=== PATIENT | male | born 1955 | race African-American/Black ===

== ENCOUNTER 2018-02-10 10:27 | Emergency (ER) | payer MEDICARE, MEDICAID ==
[~2018-02-10] VITALS: Ht 165.1 cm; Wt 76.0 kg
[~2018-02-10 10:27] MED LIST: ACET-2178 PO; ALBU90AE IH; AMLO10TA80 PO; ASPI-1158 PO; ATOR80TA PO; AZIT250T12 PO; BACL-141 PO; BENZ100C86 PO; CALC667C PO; CHOL500010 PO; CLON0.1T14; CLON0.2T PO; CYCL5TAB PO; D-ME473S8 PO; DOCU-150 PO; ENAL10TA PO; FERR-63 PO; FOLI0.8T23 PO; FURO80TA87; GABA-531 PO; GABA800T; HYDR-4134 PO; IBUP-2029 PO; INSULIN; LORA10TA7 PO; LTMX5 LEFTEYE; METO10TA94; NAPR375T5 MT; PRED10DR LEFTEYE; TERA2CAP16; TOBR5DRO2 LEFTEYE; [UNRECOGNIZED DRUG - CODE] PO
[2018-02-10] MEDS ORDERED: IPRATROPIUM BROMIDE (0.02%) 0.5MG/2.5ML NEB HHN STA (10:53)
[2018-02-10] MEDS ORDERED: ALBUTEROL (0.083%) 2.5MG/3ML NEB HHN STA (10:53)
[2018-02-10 13:12] LABS: CHLORIDE 97 mEq/L (98-107)
[2018-02-10 13:19] LABS: BASOPHILS % 0.3 % (0.0-2.0); HEMATOCRIT. 32.3 % (42.0-52.0); HEMOGLOBIN. 10.6 g/dL (14.0-18.0); LYMPHOCYTES % 11.4 % (20.0-50.0); MEAN CORPUSCULAR VOLUME 91.5 fL (80.0-94.0); MEAN PLATELET VOLUME 9.8 fl (7.4-10.4); MONOCYTES % 7.6 % (2.0-8.0); NEUTROPHILS % 76.7 % (40.0-76.0); PLATELET 190 x1000/uL (130-400); RED BLOOD CELL COUNT 3.53 mill/uL (4.7-6.1); RED CELL DISTRIBUTION WIDTH 17.1 % (11.6-14.6)
[2018-02-10 14:24] VITALS: BP 136/65
== END 2018-02-10 16:44 | disposition home or self-care (01) ==
LOC: ER 16:18
DX: B34.9 Viral infection, unspecified (principal); J18.9 Pneumonia, unspecified organism; I12.0 Hypertensive chronic kidney disease with stage 5 chronic kidney disease or end stage renal disease; E11.22 Type 2 diabetes mellitus with diabetic chronic kidney disease; N18.6 End stage renal disease; Z99.2 Dependence on renal dialysis
CPT/HCPCS: 36415; 71045; 87804; 93005; 94640; 99285; J7611

== ENCOUNTER 2018-11-19 09:10 | Emergency (ER) | payer MEDICARE, MEDICAID ==
[~2018-11-19] VITALS: Ht 167.6 cm; Wt 77.0 kg
[2018-11-19 10:04] VITALS: BP 147/80
== END 2018-11-19 10:05 | disposition home or self-care (01) ==
LOC: ER 09:10
DX: K04.7 Periapical abscess without sinus (principal); E11.9 Type 2 diabetes mellitus without complications
CPT/HCPCS: 82962; 99283

== ENCOUNTER 2019-10-11 13:13 | Emergency (ER) | payer MEDICARE, MEDICAID ==
[~2019-10-11] VITALS: Ht 177.8 cm; Wt 81.8 kg
[~2019-10-11 13:13] MED LIST changes: -ACET-2178 PO; +METO10TA16; -METO10TA94; +TOPUD PO
[2019-10-11 13:16] VITALS: BP 131/68
== END 2019-10-11 16:23 | disposition left against medical advice (07) ==
LOC: ER 13:13
DX: R06.03 Acute respiratory distress (principal)
CPT/HCPCS: 93005; 99283

== ENCOUNTER 2021-02-02 12:45 | Inpatient (IN) | payer MEDICARE, MEDICAID ==
[~2021-02-02] VITALS: Ht 167.6 cm; Wt 77.6 kg
[~2021-02-02 12:45] MED LIST changes: -ASPI-1158 PO; +ASPI-1406 PO; -ENAL10TA PO; +ENAL10TA19 PO; -GABA-531 PO; +GABA-532 PO
[2021-02-02 14:59] LABS: EOSINOPHILS % 4.9 % (0.0-5.0); HEMATOCRIT. 38.2 % (42.0-52.0); LYMPHOCYTES % 19.4 % (20.0-50.0); MEAN CORPUSCULAR HEMOGLOBIN 28.5 pg (28.0-32.0); MEAN CORPUSCULAR VOLUME 90.8 fL (80.0-94.0); MEAN PLATELET VOLUME 9.2 fl (7.4-10.4); MONOCYTES % 6.6 % (2.0-8.0); NEUTROPHILS % 68.1 % (40.0-76.0); PLATELET 173 x1000/uL (130-400); RED BLOOD CELL COUNT 4.21 mill/uL (4.7-6.1); RED CELL DISTRIBUTION WIDTH 17.3 % (11.6-14.6)
[2021-02-02 15:07] LABS: CHLORIDE 100 mEq/L (98-107)
[2021-02-02] MEDS ORDERED: PIPERACILLIN/TAZOBACTAM 3.375GM/50ML PREMIX IV ONE (16:45)
[2021-02-02] MEDS ORDERED: PIPERACILLIN/TAZ 3.375G PREMIX 50 ML IV NR (18:00)
[2021-02-02] MEDS ORDERED: DEXTROSE 50% WATER 50ML SYRINGE IV PRN (18:45)
[2021-02-02] MEDS ORDERED: ACETAMINOPHEN 325MG TABLET PO PRN (18:45)
[2021-02-02] MEDS ORDERED: ONDANSETRON HCL 4MG/2ML INJ IV PRN (18:45)
[2021-02-02] MEDS ORDERED: VANCOMYCIN 1 G PREMIX 200 ML IV SCH ×2 (18:45→20:00)
[2021-02-02] MEDS ORDERED: DIPHENHYDRAMINE 50MG/ML VIAL IV PRN (18:45)
[2021-02-02] MEDS ORDERED: GUAIFENESIN 200MG/10ML SUGAR FREE UDC PO PRN (18:45)
[2021-02-02] MEDS ORDERED: CLONIDINE 0.1MG TABLET PO PRN (18:45)
[2021-02-02] MEDS ORDERED: IPRATROPIUM/ALBUTEROL 0.5-3(2.5)MG/3ML NEB HHN PRN (18:45)
[2021-02-02] MEDS: INSULIN LISPRO 100 UNITS/ML SUBCUT SCH (21:38)
[2021-02-02] MEDS: BLOOD SUGAR DIAGNOSTIC STRIP TEST SCH (21:39)
[2021-02-02] MEDS: SODIUM CHLORIDE 0.9% INJ 3ML FLUSH IVF SCH (22:05)
[2021-02-03] MEDS: SODIUM CHLORIDE 0.9% INJ 3ML FLUSH IVF SCH ×3 (06:02→22:00)
[2021-02-03] MEDS: BLOOD SUGAR DIAGNOSTIC STRIP TEST SCH ×4 (06:34→21:00)
[2021-02-03] MEDS: INSULIN LISPRO 100 UNITS/ML SUBCUT SCH ×5 (06:35→21:00)
[2021-02-03] MEDS ORDERED: PIPERACILLIN/TAZOBACTAM 3.375 G in DEXTROSE 5% WATER 50 ML IV SCH (09:00)
[2021-02-03] MEDS: AMLODIPINE 10MG TABLET PO SCH (10:30)
[2021-02-03] MEDS ORDERED: *PATIENT'S OWN MEDICATION STORAGE XX SCH (11:30)
[2021-02-03 12:00] VITALS: BP 116/62
[2021-02-03] MEDS ORDERED: TOBRAMYCIN/DEXAMETH 0.1/0.3% OPHTH SUSP 2.5ML LEFTEYE SCH (13:00)
[2021-02-03] MEDS ORDERED: PREDNISOLONE ACETATE 1% OPHTH DROPS 5ML LEFTEYE SCH (13:00)
[2021-02-03 13:18] LABS: HEPATITIS B SURFACE ANTIGEN NEGATIVE
[2021-02-03] MEDS: GABAPENTIN 300MG CAPSULE PO SCH ×2 (14:56→18:37)
[2021-02-03] MEDS: CALCIUM ACETATE 667MG CAPSULE PO SCH ×2 (14:58→18:37)
[2021-02-03] MEDS: HYDRALAZINE HCL 50MG TABLET PO SCH ×2 (14:58→18:38)
[2021-02-03] MEDS: FOLIC ACID/VITAMIN B COMP W-C TABLET PO SCH (14:59)
[2021-02-03] MEDS: BACLOFEN 10MG TABLET PO SCH (15:07)
[2021-02-03 16:00] VITALS: BP 116/62
[2021-02-03] MEDS: PIPERACILLIN/TAZOBACTAM 3.375 G in DEXTROSE 5% WATER 50 ML IV SCH ×2 (18:36→21:00)
[2021-02-03] MEDS: CLONIDINE 0.2MG TABLET PO SCH (18:38)
[2021-02-03 20:00] VITALS: BP 109/61
[2021-02-03 20:25] VITALS: BP 114/47
[2021-02-04] VITALS: BP 105/60
[2021-02-04 04:00] VITALS: BP 95/52
[2021-02-04] MEDS: SODIUM CHLORIDE 0.9% INJ 3ML FLUSH IVF SCH ×3 (06:44→22:09)
[2021-02-04] MEDS: BLOOD SUGAR DIAGNOSTIC STRIP TEST SCH ×4 (06:44→22:32)
[2021-02-04] MEDS: INSULIN LISPRO 100 UNITS/ML SUBCUT SCH ×4 (07:50→22:39)
[2021-02-04 08:00] VITALS: BP 135/49
[2021-02-04] MEDS: GABAPENTIN 300MG CAPSULE PO SCH ×3 (09:00→17:00)
[2021-02-04] MEDS: CALCIUM ACETATE 667MG CAPSULE PO SCH ×3 (09:00→17:50)
[2021-02-04] MEDS: AMLODIPINE 10MG TABLET PO SCH (09:00)
[2021-02-04] MEDS: FOLIC ACID/VITAMIN B COMP W-C TABLET PO SCH (09:00)
[2021-02-04] MEDS: HYDRALAZINE HCL 50MG TABLET PO SCH ×3 (09:01→17:00)
[2021-02-04] MEDS: BACLOFEN 10MG TABLET PO SCH (09:01)
[2021-02-04] MEDS: CLONIDINE 0.2MG TABLET PO SCH ×2 (09:01→17:00)
[2021-02-04] MEDS: LORATADINE 10MG TABLET PO SCH (09:01)
[2021-02-04] MEDS: PIPERACILLIN/TAZOBACTAM 3.375 G in DEXTROSE 5% WATER 50 ML IV SCH ×2 (09:02→22:09)
[2021-02-04 12:00] VITALS: BP 110/49
[2021-02-04] MEDS ORDERED: IOHEXOL-350 100 ML BOTTLE ONE (12:06)
[2021-02-04] MEDS ORDERED: VANCOMYCIN 750 MG PREMIX 150 ML IV SCH (13:00)
[2021-02-04 16:19] VITALS: BP 96/43
[2021-02-04 20:00] VITALS: BP 119/59
[2021-02-05] VITALS: BP 120/75
[2021-02-05 04:00] VITALS: BP 109/51
[2021-02-05] MEDS: SODIUM CHLORIDE 0.9% INJ 3ML FLUSH IVF SCH ×3 (06:37→21:57)
[2021-02-05] MEDS: BLOOD SUGAR DIAGNOSTIC STRIP TEST SCH ×4 (07:20→22:35)
[2021-02-05] MEDS: INSULIN LISPRO 100 UNITS/ML SUBCUT SCH ×4 (07:45→22:35)
[2021-02-05 08:00] VITALS: BP 109/57
[2021-02-05] MEDS: AMLODIPINE 10MG TABLET PO SCH (09:00)
[2021-02-05] MEDS: CLONIDINE 0.2MG TABLET PO SCH ×2 (09:00→16:42)
[2021-02-05] MEDS: HYDRALAZINE HCL 50MG TABLET PO SCH ×3 (09:00→16:42)
[2021-02-05] MEDS: FOLIC ACID/VITAMIN B COMP W-C TABLET PO SCH (09:42)
[2021-02-05] MEDS: CALCIUM ACETATE 667MG CAPSULE PO SCH ×3 (09:42→17:50)
[2021-02-05] MEDS: GABAPENTIN 300MG CAPSULE PO SCH ×3 (09:42→16:42)
[2021-02-05] MEDS: PIPERACILLIN/TAZOBACTAM 3.375 G in DEXTROSE 5% WATER 50 ML IV SCH ×2 (09:43→21:11)
[2021-02-05] MEDS: LORATADINE 10MG TABLET PO SCH (09:43)
[2021-02-05] MEDS: BACLOFEN 10MG TABLET PO SCH (09:43)
[2021-02-05 12:00] VITALS: BP 149/62
[2021-02-05] MEDS ORDERED: MIDAZOLAM HCL 2 MG/2 ML VIAL ONE (12:03)
[2021-02-05] MEDS ORDERED: FENTANYL CITRATE/PF 50MCG/ML 2ML VIAL ONE (12:03)
[2021-02-05] MEDS ORDERED: MIDAZOLAM HCL 5 MG/5 ML VIAL ONE (12:04)
[2021-02-05] MEDS ORDERED: FENTANYL CITRATE/PF 50MCG/ML 5ML VIAL ONE (12:04)
[2021-02-05] MEDS ORDERED: LIDOCAINE HCL 1% 30ML VIAL (10MG/ML) ONE (12:05)
[2021-02-05] MEDS ORDERED: IODIXANOL 320MG/ML 100 ML BOTTLE IV ONE (12:05)
[2021-02-05] MEDS ORDERED: IOHEXOL-300 100 ML BOTTLE ONE (12:05)
[2021-02-05] MEDS ORDERED: HEPARIN 1000 UNITS/ML 10ML ONE (12:24)
[2021-02-05 16:00] VITALS: BP 131/72
[2021-02-05 19:54] LABS: BASOPHILS % 0.8 % (0.0-2.0); EOSINOPHILS % 3.2 % (0.0-5.0); HEMATOCRIT. 42.2 % (42.0-52.0); HEMOGLOBIN. 13.7 g/dL (14.0-18.0); LYMPHOCYTES % 23.8 % (20.0-50.0); MEAN CORPUSCULAR HEMOGLOBIN 28.6 pg (28.0-32.0); MEAN CORPUSCULAR VOLUME 88.3 fL (80.0-94.0); MEAN PLATELET VOLUME 9.2 fl (7.4-10.4); MONOCYTES % 4.2 % (2.0-8.0); PLATELET 218 x1000/uL (130-400); RED BLOOD CELL COUNT 4.77 mill/uL (4.7-6.1); RED CELL DISTRIBUTION WIDTH 16.6 % (11.6-14.6)
[2021-02-05 20:00] VITALS: BP 146/75
[2021-02-06] VITALS: BP 108/39
[2021-02-06 04:00] VITALS: BP 117/47
[2021-02-06] MEDS: SODIUM CHLORIDE 0.9% INJ 3ML FLUSH IVF SCH ×3 (07:01→21:15)
[2021-02-06] MEDS: BLOOD SUGAR DIAGNOSTIC STRIP TEST SCH ×4 (07:05→20:58)
[2021-02-06 07:21] LABS: BASOPHILS % 0.5 % (0.0-2.0); EOSINOPHILS % 0.4 % (0.0-5.0); LYMPHOCYTES % 15.9 % (20.0-50.0); MEAN CORPUSCULAR HEMOGLOBIN 28.7 pg (28.0-32.0); MEAN CORPUSCULAR VOLUME 90.1 fL (80.0-94.0); MEAN PLATELET VOLUME 9.3 fl (7.4-10.4); MONOCYTES % 12.6 % (2.0-8.0); NEUTROPHILS % 70.6 % (40.0-76.0); PLATELET 202 x1000/uL (130-400); RED BLOOD CELL COUNT 4.88 mill/uL (4.7-6.1); RED CELL DISTRIBUTION WIDTH 17.1 % (11.6-14.6)
[2021-02-06] MEDS: CALCIUM ACETATE 667MG CAPSULE PO SCH ×3 (07:50→17:40)
[2021-02-06] MEDS: INSULIN LISPRO 100 UNITS/ML SUBCUT SCH ×4 (07:50→20:58)
[2021-02-06] MEDS: HYDRALAZINE HCL 50MG TABLET PO SCH ×3 (08:13→16:44)
[2021-02-06 08:14] VITALS: BP 93/52
[2021-02-06] MEDS: AMLODIPINE 10MG TABLET PO SCH (08:14)
[2021-02-06] MEDS: CLONIDINE 0.2MG TABLET PO SCH ×2 (08:14→16:44)
[2021-02-06] MEDS: GABAPENTIN 300MG CAPSULE PO SCH ×3 (09:00→16:45)
[2021-02-06] MEDS: BACLOFEN 10MG TABLET PO SCH (09:00)
[2021-02-06] MEDS: FOLIC ACID/VITAMIN B COMP W-C TABLET PO SCH (09:00)
[2021-02-06] MEDS: LORATADINE 10MG TABLET PO SCH (09:00)
[2021-02-06] MEDS: PIPERACILLIN/TAZOBACTAM 3.375 G in DEXTROSE 5% WATER 50 ML IV SCH ×2 (09:00→22:11)
[2021-02-06 12:00] VITALS: BP 100/52
[2021-02-06 16:00] VITALS: BP 131/72
[2021-02-06 20:00] VITALS: BP 127/67
[2021-02-06] MEDS ORDERED: VANCOMYCIN 500 MG PREMIX 100 ML IV NR (21:00)
[2021-02-07] VITALS: BP 100/57
[2021-02-07 04:30] VITALS: BP 111/60
[2021-02-07] MEDS: BLOOD SUGAR DIAGNOSTIC STRIP TEST SCH ×4 (06:17→21:00)
[2021-02-07] MEDS: SODIUM CHLORIDE 0.9% INJ 3ML FLUSH IVF SCH ×3 (06:17→22:04)
[2021-02-07 06:47] LABS: BASOPHILS % 0.2 % (0.0-2.0); EOSINOPHILS % 0.1 % (0.0-5.0); HEMATOCRIT. 41.9 % (42.0-52.0); HEMOGLOBIN. 13.4 g/dL (14.0-18.0); LYMPHOCYTES % 9.9 % (20.0-50.0); MEAN CORPUSCULAR HEMOGLOBIN 28.7 pg (28.0-32.0); MEAN CORPUSCULAR VOLUME 89.8 fL (80.0-94.0); MEAN PLATELET VOLUME 9.4 fl (7.4-10.4); MONOCYTES % 9.2 % (2.0-8.0); NEUTROPHILS % 80.6 % (40.0-76.0); PLATELET 222 x1000/uL (130-400); RED BLOOD CELL COUNT 4.66 mill/uL (4.7-6.1); RED CELL DISTRIBUTION WIDTH 17.2 % (11.6-14.6)
[2021-02-07] MEDS ORDERED: SODIUM POLYSTYRENE SULFONATE 15 G/60 ML BOT PO SCH (07:00)
[2021-02-07] MEDS: CALCIUM ACETATE 667MG CAPSULE PO SCH ×3 (07:50→17:50)
[2021-02-07] MEDS: INSULIN LISPRO 100 UNITS/ML SUBCUT SCH ×4 (07:50→21:00)
[2021-02-07 08:00] VITALS: BP 120/70
[2021-02-07] MEDS: GABAPENTIN 300MG CAPSULE PO SCH ×3 (09:00→17:00)
[2021-02-07] MEDS: CLONIDINE 0.2MG TABLET PO SCH ×2 (09:00→17:00)
[2021-02-07] MEDS: FOLIC ACID/VITAMIN B COMP W-C TABLET PO SCH (09:00)
[2021-02-07] MEDS: HYDRALAZINE HCL 50MG TABLET PO SCH ×3 (09:00→17:00)
[2021-02-07] MEDS: BACLOFEN 10MG TABLET PO SCH (09:00)
[2021-02-07] MEDS: LORATADINE 10MG TABLET PO SCH (09:00)
[2021-02-07] MEDS: AMLODIPINE 10MG TABLET PO SCH (09:00)
[2021-02-07 12:00] VITALS: BP 125/71
[2021-02-07] MEDS: PIPERACILLIN/TAZOBACTAM 3.375 G in DEXTROSE 5% WATER 50 ML IV SCH ×2 (15:51→22:04)
[2021-02-07 16:00] VITALS: BP 116/60
[2021-02-08] VITALS: BP 124/75
[2021-02-08 04:00] VITALS: BP 135/73
[2021-02-08] MEDS: BLOOD SUGAR DIAGNOSTIC STRIP TEST SCH ×4 (06:46→21:00)
[2021-02-08] MEDS: SODIUM CHLORIDE 0.9% INJ 3ML FLUSH IVF SCH ×3 (06:47→22:02)
[2021-02-08] MEDS: INSULIN LISPRO 100 UNITS/ML SUBCUT SCH ×4 (07:29→21:00)
[2021-02-08] MEDS: PIPERACILLIN/TAZOBACTAM 3.375 G in DEXTROSE 5% WATER 50 ML IV SCH ×2 (08:24→21:59)
[2021-02-08 08:30] VITALS: BP 168/92
[2021-02-08] MEDS: CALCIUM ACETATE 667MG CAPSULE PO SCH ×3 (10:41→17:37)
[2021-02-08] MEDS: BACLOFEN 10MG TABLET PO SCH (10:41)
[2021-02-08] MEDS: FOLIC ACID/VITAMIN B COMP W-C TABLET PO SCH (10:41)
[2021-02-08] MEDS: HYDRALAZINE HCL 50MG TABLET PO SCH ×3 (10:41→17:37)
[2021-02-08] MEDS: GABAPENTIN 300MG CAPSULE PO SCH ×3 (10:41→17:37)
[2021-02-08] MEDS: LORATADINE 10MG TABLET PO SCH (10:42)
[2021-02-08] MEDS: AMLODIPINE 10MG TABLET PO SCH (10:42)
[2021-02-08] MEDS: CLONIDINE 0.2MG TABLET PO SCH ×2 (10:44→17:37)
[2021-02-08 12:30] VITALS: BP 112/68
[2021-02-08 16:00] VITALS: BP 148/63
[2021-02-08 20:00] VITALS: BP 117/64
[2021-02-09] VITALS: BP 110/62
[2021-02-09 04:00] VITALS: BP 98/63
[2021-02-09] MEDS: BLOOD SUGAR DIAGNOSTIC STRIP TEST SCH ×4 (07:20→21:15)
[2021-02-09] MEDS: INSULIN LISPRO 100 UNITS/ML SUBCUT SCH ×5 (07:50→21:41)
[2021-02-09 08:00] VITALS: BP 103/59
[2021-02-09] MEDS: AMLODIPINE 10MG TABLET PO SCH (09:00)
[2021-02-09] MEDS: CLONIDINE 0.2MG TABLET PO SCH ×2 (09:00→17:00)
[2021-02-09] MEDS: HYDRALAZINE HCL 50MG TABLET PO SCH ×3 (09:00→17:00)
[2021-02-09] MEDS: BACLOFEN 10MG TABLET PO SCH (09:00)
[2021-02-09] MEDS: LORATADINE 10MG TABLET PO SCH (09:32)
[2021-02-09] MEDS: GABAPENTIN 300MG CAPSULE PO SCH ×3 (09:33→17:00)
[2021-02-09] MEDS: CALCIUM ACETATE 667MG CAPSULE PO SCH ×3 (09:33→17:16)
[2021-02-09] MEDS: FOLIC ACID/VITAMIN B COMP W-C TABLET PO SCH (09:33)
[2021-02-09] MEDS: PIPERACILLIN/TAZOBACTAM 3.375 G in DEXTROSE 5% WATER 50 ML IV SCH ×2 (09:34→21:15)
[2021-02-09 12:00] VITALS: BP 130/71
[2021-02-09 16:00] VITALS: BP 125/76
[2021-02-09] MEDS: SODIUM CHLORIDE 0.9% INJ 3ML FLUSH IVF SCH ×2 (17:14→21:15)
[2021-02-09] MEDS ORDERED: VANCOMYCIN 500 MG PREMIX 100 ML IV NR (18:00)
[2021-02-09 20:00] VITALS: BP 116/62
[2021-02-10] VITALS: BP 122/65
[2021-02-10 04:00] VITALS: BP 138/66
[2021-02-10] MEDS: SODIUM CHLORIDE 0.9% INJ 3ML FLUSH IVF SCH ×3 (06:04→21:03)
[2021-02-10] MEDS: BLOOD SUGAR DIAGNOSTIC STRIP TEST SCH ×4 (06:05→20:59)
[2021-02-10 07:26] LABS: BASOPHILS % 0.5 % (0.0-2.0); EOSINOPHILS % 5.4 % (0.0-5.0); HEMATOCRIT. 40.9 % (42.0-52.0); HEMOGLOBIN. 13.1 g/dL (14.0-18.0); LYMPHOCYTES % 15.7 % (20.0-50.0); MEAN CORPUSCULAR HEMOGLOBIN 29.2 pg (28.0-32.0); MEAN CORPUSCULAR VOLUME 90.9 fL (80.0-94.0); MEAN PLATELET VOLUME 9.3 fl (7.4-10.4); MONOCYTES % 9.5 % (2.0-8.0); NEUTROPHILS % 68.9 % (40.0-76.0); PLATELET 181 x1000/uL (130-400)
[2021-02-10 08:00] VITALS: BP 131/59
[2021-02-10] MEDS: PIPERACILLIN/TAZOBACTAM 3.375 G in DEXTROSE 5% WATER 50 ML IV SCH ×2 (09:16→21:03)
[2021-02-10] MEDS: INSULIN LISPRO 100 UNITS/ML SUBCUT SCH ×5 (09:16→21:04)
[2021-02-10] MEDS: CALCIUM ACETATE 667MG CAPSULE PO SCH ×3 (09:17→17:44)
[2021-02-10] MEDS: BACLOFEN 10MG TABLET PO SCH (09:17)
[2021-02-10] MEDS: CLONIDINE 0.2MG TABLET PO SCH ×2 (09:18→17:44)
[2021-02-10] MEDS: HYDRALAZINE HCL 50MG TABLET PO SCH ×3 (09:19→17:44)
[2021-02-10] MEDS: FOLIC ACID/VITAMIN B COMP W-C TABLET PO SCH (09:19)
[2021-02-10] MEDS: AMLODIPINE 10MG TABLET PO SCH (09:19)
[2021-02-10] MEDS: LORATADINE 10MG TABLET PO SCH (09:19)
[2021-02-10] MEDS: GABAPENTIN 300MG CAPSULE PO SCH ×3 (09:19→17:44)
[2021-02-10 12:09] VITALS: BP 91/47
[2021-02-10 16:00] VITALS: BP 105/54
[2021-02-10 20:00] VITALS: BP 98/51
[2021-02-11] VITALS: BP 91/32
[2021-02-11 04:00] VITALS: BP 92/40
[2021-02-11] MEDS: BLOOD SUGAR DIAGNOSTIC STRIP TEST SCH ×4 (06:38→20:49)
[2021-02-11] MEDS: SODIUM CHLORIDE 0.9% INJ 3ML FLUSH IVF SCH ×3 (06:41→21:03)
[2021-02-11 07:15] LABS: BASOPHILS % 0.6 % (0.0-2.0); EOSINOPHILS % 5.5 % (0.0-5.0); HEMATOCRIT. 35.7 % (42.0-52.0); HEMOGLOBIN. 11.6 g/dL (14.0-18.0); LYMPHOCYTES % 24.2 % (20.0-50.0); MEAN CORPUSCULAR HEMOGLOBIN 29.3 pg (28.0-32.0); MEAN CORPUSCULAR VOLUME 90.4 fL (80.0-94.0); MEAN PLATELET VOLUME 9.4 fl (7.4-10.4); MONOCYTES % 8.1 % (2.0-8.0); NEUTROPHILS % 61.6 % (40.0-76.0); PLATELET 159 x1000/uL (130-400); RED BLOOD CELL COUNT 3.95 mill/uL (4.7-6.1); RED CELL DISTRIBUTION WIDTH 16.7 % (11.6-14.6)
[2021-02-11 08:30] VITALS: BP 115/58
[2021-02-11] MEDS: FOLIC ACID/VITAMIN B COMP W-C TABLET PO SCH (08:56)
[2021-02-11] MEDS: GABAPENTIN 300MG CAPSULE PO SCH ×3 (08:56→17:19)
[2021-02-11] MEDS: CALCIUM ACETATE 667MG CAPSULE PO SCH ×3 (08:56→17:19)
[2021-02-11] MEDS: PIPERACILLIN/TAZOBACTAM 3.375 G in DEXTROSE 5% WATER 50 ML IV SCH ×2 (08:56→20:49)
[2021-02-11] MEDS: BACLOFEN 10MG TABLET PO SCH (08:56)
[2021-02-11] MEDS: CLONIDINE 0.2MG TABLET PO SCH ×2 (09:00→17:00)
[2021-02-11] MEDS: AMLODIPINE 10MG TABLET PO SCH (09:00)
[2021-02-11] MEDS: LORATADINE 10MG TABLET PO SCH (09:00)
[2021-02-11] MEDS: INSULIN LISPRO 100 UNITS/ML SUBCUT SCH ×4 (09:00→20:57)
[2021-02-11] MEDS: HYDRALAZINE HCL 50MG TABLET PO SCH ×3 (09:00→17:00)
[2021-02-11 12:30] VITALS: BP 106/51
[2021-02-11 15:59] VITALS: BP 98/48
[2021-02-11 20:00] VITALS: BP 128/64
[2021-02-12] VITALS (7 sets, daily range): BP systolic 99–157; BP diastolic 50–68
[2021-02-12] MEDS: SODIUM CHLORIDE 0.9% INJ 3ML FLUSH IVF SCH ×3 (05:36→21:07)
[2021-02-12] MEDS ORDERED: VANCOMYCIN 500 MG PREMIX 100 ML IV SCH (06:00)
[2021-02-12] MEDS: BLOOD SUGAR DIAGNOSTIC STRIP TEST SCH ×4 (06:21→21:06)
[2021-02-12] MEDS ORDERED: LIDOCAINE HCL 1% 20ML VIAL (Pyxis) INJ ONE (07:40)
[2021-02-12] MEDS ORDERED: BUPIVACAINE HCL/PF 0.5% (5MG/ML) 10ML ONE (07:40)
[2021-02-12] MEDS ORDERED: POLYMYXIN B SULFATE 500000 UNITS/VIAL ONE (07:41)
[2021-02-12] MEDS ORDERED: VANCOMYCIN HCL 1 GM/VIAL ONE (07:41)
[2021-02-12] MEDS: INSULIN LISPRO 100 UNITS/ML SUBCUT SCH ×4 (07:50→21:00)
[2021-02-12] MEDS: LORATADINE 10MG TABLET PO SCH (08:56)
[2021-02-12] MEDS: PIPERACILLIN/TAZOBACTAM 3.375 G in DEXTROSE 5% WATER 50 ML IV SCH ×2 (08:56→21:06)
[2021-02-12] MEDS: FOLIC ACID/VITAMIN B COMP W-C TABLET PO SCH (08:56)
[2021-02-12] MEDS: BACLOFEN 10MG TABLET PO SCH (08:57)
[2021-02-12] MEDS: CALCIUM ACETATE 667MG CAPSULE PO SCH ×3 (08:57→16:41)
[2021-02-12] MEDS: AMLODIPINE 10MG TABLET PO SCH (08:57)
[2021-02-12] MEDS: HYDRALAZINE HCL 50MG TABLET PO SCH ×3 (08:57→16:41)
[2021-02-12] MEDS: GABAPENTIN 300MG CAPSULE PO SCH ×3 (08:57→16:41)
[2021-02-12] MEDS: CLONIDINE 0.2MG TABLET PO SCH ×2 (09:00→16:41)
[2021-02-12] MEDS ORDERED: ACETAMINOPHEN 500MG TABLET ONE (10:21)
[2021-02-12] MEDS ORDERED: PROPOFOL 10MG/ML 100ML 100 ML IV ONE ×2 (10:29→11:18)
[2021-02-12] MEDS ORDERED: LIDOCAINE HCL 1% 10 MG/ML 10ML VIAL ONE (10:46)
[2021-02-12] MEDS ORDERED: ONDANSETRON HCL 4MG/2ML INJ IV PRN (11:15)
[2021-02-12] MEDS ORDERED: FENTANYL CITRATE/PF 50MCG/ML 2ML VIAL IV PRN (11:15)
[2021-02-12] MEDS ORDERED: BACITRACIN 15GM TUBE TOP ONE (11:18)
[2021-02-12] MEDS: ACETAMINOPHEN 325MG TABLET PO PRN (21:55)
[2021-02-13 04:00] VITALS: BP 110/59
[2021-02-13] MEDS: SODIUM CHLORIDE 0.9% INJ 3ML FLUSH IVF SCH ×3 (06:00→20:56)
[2021-02-13] MEDS: BLOOD SUGAR DIAGNOSTIC STRIP TEST SCH ×4 (06:23→20:55)
[2021-02-13] MEDS: CALCIUM ACETATE 667MG CAPSULE PO SCH ×3 (07:50→17:21)
[2021-02-13] MEDS: INSULIN LISPRO 100 UNITS/ML SUBCUT SCH ×4 (07:50→20:56)
[2021-02-13 08:00] VITALS: BP 114/57
[2021-02-13] MEDS: PIPERACILLIN/TAZOBACTAM 3.375 G in DEXTROSE 5% WATER 50 ML IV SCH ×3 (08:46→20:55)
[2021-02-13] MEDS: GABAPENTIN 300MG CAPSULE PO SCH ×3 (08:47→17:21)
[2021-02-13] MEDS: BACLOFEN 10MG TABLET PO SCH (08:47)
[2021-02-13] MEDS: LORATADINE 10MG TABLET PO SCH (08:48)
[2021-02-13] MEDS: CLONIDINE 0.2MG TABLET PO SCH ×2 (08:57→17:00)
[2021-02-13] MEDS: HYDRALAZINE HCL 50MG TABLET PO SCH ×3 (08:57→17:00)
[2021-02-13] MEDS: AMLODIPINE 10MG TABLET PO SCH (08:58)
[2021-02-13] MEDS: FOLIC ACID/VITAMIN B COMP W-C TABLET PO SCH (08:58)
[2021-02-13 12:00] VITALS: BP 128/62
[2021-02-13 16:00] VITALS: BP 128/70
[2021-02-13 20:36] VITALS: BP 151/65
[2021-02-14] VITALS (7 sets, daily range): BP systolic 106–160; BP diastolic 56–79
[2021-02-14 05:48] LABS: BASOPHILS % 0.5 % (0.0-2.0); EOSINOPHILS % 5.6 % (0.0-5.0); HEMATOCRIT. 37.7 % (42.0-52.0); HEMOGLOBIN. 12.1 g/dL (14.0-18.0); LYMPHOCYTES % 18.8 % (20.0-50.0); MEAN CORPUSCULAR HEMOGLOBIN 28.9 pg (28.0-32.0); MEAN CORPUSCULAR VOLUME 89.9 fL (80.0-94.0); MONOCYTES % 7.7 % (2.0-8.0); NEUTROPHILS % 67.4 % (40.0-76.0); PLATELET 160 x1000/uL (130-400); RED CELL DISTRIBUTION WIDTH 16.7 % (11.6-14.6)
[2021-02-14] MEDS: SODIUM CHLORIDE 0.9% INJ 3ML FLUSH IVF SCH ×3 (05:57→21:31)
[2021-02-14] MEDS: BLOOD SUGAR DIAGNOSTIC STRIP TEST SCH ×4 (06:27→21:30)
[2021-02-14] MEDS: INSULIN LISPRO 100 UNITS/ML SUBCUT SCH ×4 (06:27→21:00)
[2021-02-14] MEDS ORDERED: LIDOCAINE HCL 1% 10 MG/ML 10ML VIAL ONE (08:36)
[2021-02-14] MEDS: CALCIUM ACETATE 667MG CAPSULE PO SCH ×3 (08:40→17:46)
[2021-02-14] MEDS: GABAPENTIN 300MG CAPSULE PO SCH ×3 (08:40→17:46)
[2021-02-14] MEDS: FOLIC ACID/VITAMIN B COMP W-C TABLET PO SCH (08:40)
[2021-02-14] MEDS: LORATADINE 10MG TABLET PO SCH (08:40)
[2021-02-14] MEDS: CLONIDINE 0.2MG TABLET PO SCH ×2 (08:40→17:00)
[2021-02-14] MEDS: BACLOFEN 10MG TABLET PO SCH (08:40)
[2021-02-14] MEDS: HYDRALAZINE HCL 50MG TABLET PO SCH ×3 (08:40→17:00)
[2021-02-14] MEDS: AMLODIPINE 10MG TABLET PO SCH (08:41)
[2021-02-14] MEDS: PIPERACILLIN/TAZOBACTAM 3.375 G in DEXTROSE 5% WATER 50 ML IV SCH ×2 (09:13→21:31)
[2021-02-14] MEDS: ACETAMINOPHEN 325MG TABLET PO PRN (11:45)
[2021-02-15 04:00] VITALS: BP 111/52
[2021-02-15] MEDS: SODIUM CHLORIDE 0.9% INJ 3ML FLUSH IVF SCH ×3 (06:00→22:17)
[2021-02-15] MEDS: INSULIN LISPRO 100 UNITS/ML SUBCUT SCH ×4 (06:21→22:16)
[2021-02-15] MEDS: BLOOD SUGAR DIAGNOSTIC STRIP TEST SCH ×4 (06:21→22:17)
[2021-02-15 08:00] VITALS: BP 107/51
[2021-02-15] MEDS: BACLOFEN 10MG TABLET PO SCH (08:08)
[2021-02-15] MEDS: CALCIUM ACETATE 667MG CAPSULE PO SCH ×3 (08:08→18:00)
[2021-02-15] MEDS: PIPERACILLIN/TAZOBACTAM 3.375 G in DEXTROSE 5% WATER 50 ML IV SCH (08:08)
[2021-02-15] MEDS: GABAPENTIN 300MG CAPSULE PO SCH ×3 (08:08→18:00)
[2021-02-15] MEDS: FOLIC ACID/VITAMIN B COMP W-C TABLET PO SCH (08:08)
[2021-02-15] MEDS: LORATADINE 10MG TABLET PO SCH (08:08)
[2021-02-15] MEDS: HYDRALAZINE HCL 50MG TABLET PO SCH ×3 (08:09→18:00)
[2021-02-15] MEDS: CLONIDINE 0.2MG TABLET PO SCH ×2 (08:09→18:00)
[2021-02-15] MEDS: AMLODIPINE 10MG TABLET PO SCH (08:10)
[2021-02-15 12:00] VITALS: BP 143/63
[2021-02-15 16:00] VITALS: BP 122/52
[2021-02-15] MEDS: CEFTRIAXONE 2 G in DEXTROSE 5% WATER 50 ML IV SCH (18:00)
[2021-02-15 20:00] VITALS: BP 98/38
[2021-02-16] VITALS (7 sets, daily range): BP systolic 105–140; BP diastolic 40–64
[2021-02-16] MEDS: SODIUM CHLORIDE 0.9% INJ 3ML FLUSH IVF SCH ×2 (06:00→14:05)
[2021-02-16] MEDS: BLOOD SUGAR DIAGNOSTIC STRIP TEST SCH ×3 (06:39→17:59)
[2021-02-16 07:25] LABS: BASOPHILS % 0.4 % (0.0-2.0); EOSINOPHILS % 5.2 % (0.0-5.0); HEMATOCRIT. 31.9 % (42.0-52.0); HEMOGLOBIN. 10.3 g/dL (14.0-18.0); LYMPHOCYTES % 19.5 % (20.0-50.0); MEAN CORPUSCULAR HEMOGLOBIN 28.8 pg (28.0-32.0); MEAN CORPUSCULAR VOLUME 89.7 fL (80.0-94.0); MEAN PLATELET VOLUME 9.9 fl (7.4-10.4); MONOCYTES % 8.3 % (2.0-8.0); NEUTROPHILS % 66.6 % (40.0-76.0); PLATELET 146 x1000/uL (130-400); RED BLOOD CELL COUNT 3.56 mill/uL (4.7-6.1); RED CELL DISTRIBUTION WIDTH 16.6 % (11.6-14.6)
[2021-02-16] MEDS: INSULIN LISPRO 100 UNITS/ML SUBCUT SCH ×3 (07:50→17:50)
[2021-02-16] MEDS: AMLODIPINE 10MG TABLET PO SCH (09:00)
[2021-02-16] MEDS: CLONIDINE 0.2MG TABLET PO SCH ×2 (09:00→17:00)
[2021-02-16] MEDS: HYDRALAZINE HCL 50MG TABLET PO SCH ×3 (09:00→17:00)
[2021-02-16] MEDS: CALCIUM ACETATE 667MG CAPSULE PO SCH ×3 (12:50→17:50)
[2021-02-16] MEDS: GABAPENTIN 300MG CAPSULE PO SCH ×3 (13:00→17:00)
[2021-02-16] MEDS: ACETAMINOPHEN 325MG TABLET PO PRN (13:59)
[2021-02-16] MEDS: FOLIC ACID/VITAMIN B COMP W-C TABLET PO SCH (13:59)
[2021-02-16] MEDS: LORATADINE 10MG TABLET PO SCH (13:59)
[2021-02-16] MEDS: BACLOFEN 10MG TABLET PO SCH (14:00)
[2021-02-16] MEDS: CEFTRIAXONE 2 G in DEXTROSE 5% WATER 50 ML IV SCH (18:24)
== END 2021-02-16 21:45 | DRG 252 ==
LOC: ER 12:45 → EDBEDREQSVC 16:48 → EDBEDREQ 16:48 → MICUSO 18:43 → EDBEDREQ 18:46 → EDBEDREQTM 18:46 → 6WST 02-03 07:26
PROVIDERS: ADMIT Internal Medicine; ATTEND Internal Medicine
PROC: 04L Lower Arteries, Occlusion (ICD-10-PCS; principal; 2021-02-05)
PROC: 04HL33Z Insertion of Infusion Device into Left Femoral Artery, Percutaneous Approach (ICD-10-PCS; 2021-02-05)
PROC: 04HK33Z Insertion of Infusion Device into Right Femoral Artery, Percutaneous Approach (ICD-10-PCS; 2021-02-05)
PROC: 04HM33Z Insertion of Infusion Device into Right Popliteal Artery, Percutaneous Approach (ICD-10-PCS; 2021-02-05)
PROC: B41F1ZZ Fluoroscopy of Right Lower Extremity Arteries using Low Osmolar Contrast (ICD-10-PCS; 2021-02-05)
PROC: 5A1D70Z Performance of Urinary Filtration, Intermittent, Less than 6 Hours Per Day (ICD-10-PCS; 2021-02-05)
PROC: 5A1D70Z Performance of Urinary Filtration, Intermittent, Less than 6 Hours Per Day (ICD-10-PCS; 2021-02-06)
PROC: 5A1D70Z Performance of Urinary Filtration, Intermittent, Less than 6 Hours Per Day (ICD-10-PCS; 2021-02-07)
PROC: 5A1D70Z Performance of Urinary Filtration, Intermittent, Less than 6 Hours Per Day (ICD-10-PCS; 2021-02-09)
PROC: 5A1D70Z Performance of Urinary Filtration, Intermittent, Less than 6 Hours Per Day (ICD-10-PCS; 2021-02-11)
PROC: 0Q9N0ZZ Drainage of Right Metatarsal, Open Approach (ICD-10-PCS; 2021-02-12)
PROC: 0QDN0ZZ Extraction of Right Metatarsal, Open Approach (ICD-10-PCS; 2021-02-12)
PROC: 5A1D70Z Performance of Urinary Filtration, Intermittent, Less than 6 Hours Per Day (ICD-10-PCS; 2021-02-13)
PROC: 05H333Z Insertion of Infusion Device into Right Innominate Vein, Percutaneous Approach (ICD-10-PCS; 2021-02-14)
PROC: B54MZZA Ultrasonography of Right Upper Extremity Veins, Guidance (ICD-10-PCS; 2021-02-14)
PROC: 5A1D70Z Performance of Urinary Filtration, Intermittent, Less than 6 Hours Per Day (ICD-10-PCS; 2021-02-16)
DX: E11.51 Type 2 diabetes mellitus with diabetic peripheral angiopathy without gangrene (principal); N18.6 End stage renal disease; G93.41 Metabolic encephalopathy; I12.0 Hypertensive chronic kidney disease with stage 5 chronic kidney disease or end stage renal disease; M86.8X7 Other osteomyelitis, ankle and foot; E11.621 Type 2 diabetes mellitus with foot ulcer; E11.69 Type 2 diabetes mellitus with other specified complication; L97.519 Non-pressure chronic ulcer of other part of right foot with unspecified severity; E11.22 Type 2 diabetes mellitus with diabetic chronic kidney disease; E11.40 Type 2 diabetes mellitus with diabetic neuropathy, unspecified; E78.00 Pure hypercholesterolemia, unspecified; J45.909 Unspecified asthma, uncomplicated; Z20.822 Contact with and (suspected) exposure to COVID-19; E78.5 Hyperlipidemia, unspecified; L97.529 Non-pressure chronic ulcer of other part of left foot with unspecified severity; D64.9 Anemia, unspecified; M19.071 Primary osteoarthritis, right ankle and foot; Z79.1 Long term (current) use of non-steroidal anti-inflammatories (NSAID); Z79.899 Other long term (current) drug therapy; Z79.82 Long term (current) use of aspirin; Z90.49 Acquired absence of other specified parts of digestive tract; Z79.4 Long term (current) use of insulin; Z83.3 Family history of diabetes mellitus; Z99.2 Dependence on renal dialysis; I70.201 Unspecified atherosclerosis of native arteries of extremities, right leg; F29 Unspecified psychosis not due to a substance or known physiological condition
CPT/HCPCS: 36247; 36415; 71045; 73630; 73721; 74018; 75635; 75710; 76937; 80048; 80053; 80202; 82140; 82962; 83036; 83605; 84145; 84484; 85025; 85347; 85651; 86140; 86705; 86709; 86803; 87070; 87075; 87077; 87186; 87340; 87426; 88311; 92610; 93005; 93923; 93971; 97110; 97162; 97530; 99285; C1725; C1760; C1769; C1887; C1893; C1894; J0696; J1644; J1815; J2250; J2405; J2543; J2704; J3010; J3370; J3490; J7040; J7060; Q9967

== ENCOUNTER 2021-02-17 22:06 | Emergency (ER) | payer MEDICARE, MEDICAID ==
[~2021-02-17] VITALS: Ht 167.6 cm; Wt 77.0 kg
[2021-02-17] MEDS ORDERED: CEFTRIAXONE 2 GM IV ONE (23:15)
[2021-02-17] MEDS ORDERED: ONDANSETRON HCL 4MG/2ML INJ IV ONE (23:15)
[2021-02-17 23:52] LABS: BASOPHILS % 0.5 % (0.0-2.0); EOSINOPHILS % 1.7 % (0.0-5.0); HEMATOCRIT. 37.7 % (42.0-52.0); HEMOGLOBIN. 11.8 g/dL (14.0-18.0); LYMPHOCYTES % 9.6 % (20.0-50.0); MEAN CORPUSCULAR HEMOGLOBIN 28.5 pg (28.0-32.0); MEAN CORPUSCULAR VOLUME 90.8 fL (80.0-94.0); MEAN PLATELET VOLUME 9.5 fl (7.4-10.4); NEUTROPHILS % 83.2 % (40.0-76.0); PLATELET 184 x1000/uL (130-400); RED BLOOD CELL COUNT 4.15 mill/uL (4.7-6.1); RED CELL DISTRIBUTION WIDTH 16.5 % (11.6-14.6)
[2021-02-17] MEDS ORDERED: CEFTRIAXONE 2 G PREMIX 50 ML IV NR (23:56)
[2021-02-18 00:04] LABS: CHLORIDE 98 mEq/L (98-107)
[2021-02-18] MEDS ORDERED: KETOROLAC 15MG/ML VIAL IV ONE (00:45)
[2021-02-18] MEDS ORDERED: GABAPENTIN 300MG CAPSULE PO ONE (00:45)
[2021-02-18] MEDS ORDERED: CALCIUM GLUCONATE 100MG/ML 10ML VIAL IV NR (01:30)
[2021-02-18] MEDS ORDERED: SODIUM BICARBONATE 8.4% 1 MEQ/ML 50ML SYR IV NR (01:30)
[2021-02-18 02:47] VITALS: BP 106/46
== END 2021-02-18 02:49 | disposition home or self-care (01) ==
LOC: ER 22:06
DX: R11.2 Nausea with vomiting, unspecified (principal); M86.8X7 Other osteomyelitis, ankle and foot; E11.9 Type 2 diabetes mellitus without complications; N18.9 Chronic kidney disease, unspecified; I51.7 Cardiomegaly; Z79.4 Long term (current) use of insulin
CPT/HCPCS: 36415; 80053; 83605; 83690; 84145; 85025; 87040; 93005; 96365; 96375; 99284; J0610; J0696; J2405; J3490

== ENCOUNTER 2021-06-30 09:41 | Inpatient (IN) | payer MEDICARE, MEDICAID ==
[~2021-06-30] VITALS: Ht 167.6 cm; Wt 74.4 kg
[~2021-06-30 09:41] MED LIST changes: +HEPARIN SODIUM 1,000 UNIT/1ML VIAL IV ONE
[2021-06-30] MEDS ORDERED: MV-M1TAB19 PO (11:38)
[2021-06-30] MEDS ORDERED: T3 PO (11:38)
[2021-06-30] MEDS ORDERED: ATOR80TA MT (11:38)
[2021-06-30] MEDS ORDERED: CLOP-31 MT (11:38)
[2021-06-30] MEDS ORDERED: NEPVIT MT (11:38)
[2021-06-30] MEDS ORDERED: GABA-532 PO (11:38)
[2021-06-30] MEDS ORDERED: AMLO5TAB88 MT (11:38)
[2021-06-30] MEDS ORDERED: FENTANYL CITRATE/PF 50MCG/ML 2ML VIAL ONE (13:37)
[2021-06-30] MEDS ORDERED: MIDAZOLAM HCL 2 MG/2 ML VIAL ONE (13:38)
[2021-06-30] MEDS ORDERED: IODIXANOL 320MG/ML 100 ML BOTTLE IV ONE (13:38)
[2021-06-30] MEDS ORDERED: LIDOCAINE HCL 1% 10 MG/ML 10ML VIAL ONE ×2 (13:38→14:05)
[2021-06-30] MEDS ORDERED: IOHEXOL-300 100 ML BOTTLE ONE (14:31)
[2021-06-30] MEDS ORDERED: ONDANSETRON HCL 4MG/2ML INJ IV PRN (15:00)
[2021-06-30] MEDS ORDERED: ATROPINE SULFATE 1MG/10ML SYR IV PRN (15:00)
[2021-06-30] MEDS ORDERED: ZOLPIDEM TARTRATE 5MG TABLET PO PRN (15:00)
[2021-06-30] MEDS ORDERED: ASPIRIN 325MG TABLET ONE (15:02)
[2021-06-30] MEDS ORDERED: CLOPIDOGREL 75MG TABLET ONE (15:02)
[2021-06-30 15:35] VITALS: BP 132/83
[2021-06-30 16:01] VITALS: BP 150/76
[2021-06-30 17:49] VITALS: BP 168/82
[2021-06-30 20:00] VITALS: BP 116/61
[2021-06-30] MEDS ORDERED: ENAL20TA18 PO (21:33)
[2021-06-30] MEDS ORDERED: HYDR-4135 PO (21:33)
[2021-06-30] MEDS ORDERED: FOLI0.8T42 MT (21:43)
[2021-06-30] MEDS ORDERED: COLL30OI TP (21:43)
[2021-06-30] MEDS ORDERED: LANTUSUD SUBCUT (21:43)
[2021-06-30] MEDS ORDERED: DICL75TA5 PO (21:43)
[2021-06-30] MEDS ORDERED: AMOX1TAB15 MT (21:43)
[2021-06-30] MEDS ORDERED: INSU100V37 SQ (21:43)
[2021-06-30] MEDS ORDERED: ASPI-1497 PO (21:43)
[2021-06-30] MEDS ORDERED: REN800 MT (21:43)
[2021-06-30 22:00] VITALS: BP 123/58
[2021-06-30] MEDS ORDERED: *PATIENT'S OWN MEDICATION STORAGE XX SCH (22:00)
[2021-06-30] MEDS: ACETAMINOPHEN 325MG TABLET PO PRN (22:42)
[2021-07-01] VITALS (12 sets, daily range): BP systolic 109–160; BP diastolic 50–94
[2021-07-01 06:56] LABS: HEMOGLOBIN. 10.2 g/dL (14.0-18.0); MEAN CORPUSCULAR VOLUME 84.9 fL (80.0-94.0); PLATELET 182 x1000/uL (130-400); RED BLOOD CELL COUNT 3.77 mill/uL (4.7-6.1); RED CELL DISTRIBUTION WIDTH 17.8 % (11.6-14.6)
[2021-07-01] MEDS ORDERED: ASPIRIN 325MG TABLET PO SCH (09:00)
[2021-07-01] MEDS ORDERED: CLOPIDOGREL 75MG TABLET PO SCH (09:00)
[2021-07-01 12:43] LABS: HEPATITIS B SURFACE ANTIGEN NEGATIVE
[2021-07-01 13:29] LABS: PLATELET ESTIMATE NORMAL
[2021-07-01] MEDS: ACETAMINOPHEN 325MG TABLET PO PRN (20:22)
== END 2021-07-01 21:20 | disposition home or self-care (01) | DRG 252 ==
LOC: CCL 09:41 → 3WST 09:42
PROVIDERS: ADMIT Specialist; ATTEND Specialist
PROC: 047U3ZZ Dilation of Left Peroneal Artery, Percutaneous Approach (ICD-10-PCS; principal; 2021-06-30)
PROC: 047Q3ZZ Dilation of Left Anterior Tibial Artery, Percutaneous Approach (ICD-10-PCS; 2021-06-30)
PROC: B41FYZZ Fluoroscopy of Right Lower Extremity Arteries using Other Contrast (ICD-10-PCS; 2021-06-30)
PROC: B41G1ZZ Fluoroscopy of Left Lower Extremity Arteries using Low Osmolar Contrast (ICD-10-PCS; 2021-06-30)
PROC: 5A1D70Z Performance of Urinary Filtration, Intermittent, Less than 6 Hours Per Day (ICD-10-PCS; 2021-07-01)
DX: E11.52 Type 2 diabetes mellitus with diabetic peripheral angiopathy with gangrene (principal); N18.6 End stage renal disease; I12.0 Hypertensive chronic kidney disease with stage 5 chronic kidney disease or end stage renal disease; I70.262 Atherosclerosis of native arteries of extremities with gangrene, left leg; Z20.822 Contact with and (suspected) exposure to COVID-19; E78.5 Hyperlipidemia, unspecified; E87.5 Hyperkalemia; E11.22 Type 2 diabetes mellitus with diabetic chronic kidney disease; R00.1 Bradycardia, unspecified; D64.9 Anemia, unspecified; Z79.84 Long term (current) use of oral hypoglycemic drugs; Z99.2 Dependence on renal dialysis; Z79.82 Long term (current) use of aspirin; Z79.02 Long term (current) use of antithrombotics/antiplatelets
CPT/HCPCS: 36415; 37228; 73721; 75710; 80048; 82962; 85025; 85347; 86705; 86709; 86803; 87340; 87426; C1725; C1760; C1769; C1887; C1893; C1894; J1644; J2250; J3010; J3490; Q9967

== ENCOUNTER 2021-08-17 10:34 | Inpatient (IN) | payer MEDICARE, MEDICAID ==
[~2021-08-17] VITALS: Ht 167.6 cm; Wt 73.9 kg
[~2021-08-17 10:34] MED LIST changes: -ALBU90AE IH; -AMLO10TA80 PO; +AMLO5TAB88 MT; +AMOX1TAB15 MT; -ASPI-1406 PO; +ASPI-1497 PO; +ATOR80TA MT; -ATOR80TA PO; -AZIT250T12 PO; -BACL-141 PO; -BENZ100C86 PO; -CALC667C PO; -CLON0.1T14; -CLON0.2T PO; +CLOP-31 MT; +COLL30OI TP; -CYCL5TAB PO; -D-ME473S8 PO; +DICL75TA5 PO; -DOCU-150 PO; -ENAL10TA19 PO; +ENAL20TA18 PO; -FERR-63 PO; -FOLI0.8T23 PO; +FOLI0.8T42 MT; -FURO80TA87; -GABA800T; -HEPARIN SODIUM 1,000 UNIT/1ML VIAL IV ONE; -HYDR-4134 PO; +HYDR-4135 PO; -IBUP-2029 PO; +INSU100V37 SQ; -INSULIN; +LANTUSUD SUBCUT; -LORA10TA7 PO; -LTMX5 LEFTEYE; -METO10TA16; -NAPR375T5 MT; +NEPVIT MT; -PRED10DR LEFTEYE; +REN800 MT; -TERA2CAP16; -TOBR5DRO2 LEFTEYE; -[UNRECOGNIZED DRUG - CODE] PO
[2021-08-17 12:16] LABS: BASOPHILS % 0.7 % (0.0-2.0); EOSINOPHILS % 7.5 % (0.0-5.0); HEMATOCRIT. 33.9 % (42.0-52.0); HEMOGLOBIN. 10.6 g/dL (14.0-18.0); LYMPHOCYTES % 19.7 % (20.0-50.0); MEAN CORPUSCULAR HEMOGLOBIN 25.3 pg (28.0-32.0); MEAN CORPUSCULAR VOLUME 80.9 fL (80.0-94.0); MONOCYTES % 8.1 % (2.0-8.0); PLATELET 143 x1000/uL (130-400); RED BLOOD CELL COUNT 4.19 mill/uL (4.7-6.1)
[2021-08-17 12:25] LABS: CHLORIDE 99 mEq/L (98-107)
[2021-08-17] MEDS ORDERED: VANCOMYCIN 1G PREMIX 200 ML IV SCH ×2 (12:45→18:45)
[2021-08-17] MEDS ORDERED: CEFTRIAXONE 1 G PREMIX 50 ML IV ONE ×2 (12:45→16:45)
[2021-08-17] MEDS: VANCOMYCIN 1G PREMIX 200 ML IV SCH ×2 (17:04→17:43)
[2021-08-17] MEDS ORDERED: ACETAMINOPHEN 325MG TABLET PO PRN ×2 (18:45)
[2021-08-17] MEDS ORDERED: DIPHENHYDRAMINE 50MG/ML VIAL IV PRN (18:45)
[2021-08-17] MEDS ORDERED: CLONIDINE 0.1MG TABLET PO PRN (18:45)
[2021-08-17] MEDS ORDERED: ONDANSETRON HCL 4MG/2ML INJ IV PRN (18:45)
[2021-08-17] MEDS ORDERED: PIPERACILLIN/TAZ 3.375G PREMIX 50 ML IV NR (19:00)
[2021-08-17] MEDS ORDERED: VANCOMYCIN 500 MG in DEXT 5% WATER 100 ML IV NR (19:30)
[2021-08-17] MEDS ORDERED: ZOLPIDEM TARTRATE 5MG TABLET PO PRN (21:00)
[2021-08-17] MEDS: INSULIN LISPRO 100 UNITS/ML SUBCUT SCH (21:00)
[2021-08-17] MEDS: BLOOD SUGAR DIAGNOSTIC STRIP TEST SCH (21:58)
[2021-08-17] MEDS: SODIUM CHLORIDE 0.9% INJ 3ML FLUSH IVF SCH (21:59)
[2021-08-17] MEDS: HYDRALAZINE HCL 50MG TABLET PO SCH (22:00)
[2021-08-17] MEDS: GABAPENTIN 300MG CAPSULE PO SCH (22:00)
[2021-08-18] VITALS (8 sets, daily range): BP systolic 99–154; BP diastolic 55–70
[2021-08-18] MEDS: HYDRALAZINE HCL 50MG TABLET PO SCH ×3 (05:16→20:48)
[2021-08-18] MEDS: GABAPENTIN 300MG CAPSULE PO SCH ×3 (05:16→20:49)
[2021-08-18] MEDS: BLOOD SUGAR DIAGNOSTIC STRIP TEST SCH ×4 (06:08→20:49)
[2021-08-18] MEDS: PIPERACILLIN/TAZOBACTAM 3.375 G in DEXTROSE 5% WATER 50 ML IV SCH ×2 (06:08→20:49)
[2021-08-18] MEDS: SODIUM CHLORIDE 0.9% INJ 3ML FLUSH IVF SCH ×3 (06:08→22:00)
[2021-08-18] MEDS: DEXTROSE 50% WATER 50ML SYRINGE IV PRN ×2 (06:09→13:47)
[2021-08-18] MEDS: CALCIUM ACETATE 667MG CAPSULE PO SCH ×3 (08:10→18:10)
[2021-08-18] MEDS: INSULIN LISPRO 100 UNITS/ML SUBCUT SCH ×4 (08:10→20:49)
[2021-08-18] MEDS: FOLIC ACID/VITAMIN B COMP W-C TABLET PO SCH (09:00)
[2021-08-18] MEDS: AMLODIPINE 10MG TABLET PO SCH (09:00)
[2021-08-18] MEDS: CLOPIDOGREL 75MG TABLET PO SCH (09:00)
[2021-08-18] MEDS: ASPIRIN 81MG EC TABLET PO SCH (09:00)
[2021-08-18] MEDS ORDERED: BUPIVACAINE HCL 0.5% (5MG/ML) 50ML ONE (13:32)
[2021-08-18] MEDS ORDERED: POLYMYXIN B SULFATE 500000 UNITS/VIAL ONE ×2 (13:32→13:49)
[2021-08-18] MEDS ORDERED: LIDOCAINE HCL 1% 50ML VIAL (10MG/ML) ONE (13:33)
[2021-08-18] MEDS ORDERED: BUPIVACAINE HCL/PF 0.5% (5MG/ML) 10ML ONE (13:34)
[2021-08-18] MEDS ORDERED: PROPOFOL 200MG/20ML VIAL IV ONE (15:19)
[2021-08-18] MEDS ORDERED: LIDOCAINE HCL 1% 10 MG/ML 10ML VIAL ONE (15:19)
[2021-08-18] MEDS ORDERED: FENTANYL CITRATE/PF 50MCG/ML 2ML VIAL ONE (15:19)
[2021-08-18] MEDS ORDERED: MIDAZOLAM HCL 2 MG/2 ML VIAL ONE (15:20)
[2021-08-18] MEDS ORDERED: MEPERIDINE HCL/PF 25MG/ML CPJ IV PRN (15:45)
[2021-08-18] MEDS ORDERED: HYDROMORPHONE HCL/PF 2MG/ML CPJ IV PRN (15:45)
[2021-08-18] MEDS ORDERED: LABETALOL 5MG/ML SYR 20 MG/4 ML SYRINGE IV PRN (15:45)
[2021-08-18] MEDS ORDERED: ONDANSETRON HCL 4MG/2ML INJ IV PRN (15:45)
[2021-08-18 15:56] LABS: HEPATITIS B SURFACE ANTIGEN NEGATIVE
[2021-08-18] MEDS ORDERED: MORPHINE SULFATE 4 MG/ML CPJ (NOT FOR IM USE) IV PRN (20:15)
[2021-08-18] MEDS ORDERED: NALOXONE HCL 0.4MG/ML VIAL IV PRN (20:30)
[2021-08-18] MEDS: HYDROCODONE/ACETAMINOPHEN 10/325MG TABLET PO PRN (20:48)
[2021-08-19] VITALS (7 sets, daily range): BP systolic 132–178; BP diastolic 57–79
[2021-08-19] MEDS: SODIUM CHLORIDE 0.9% INJ 3ML FLUSH IVF SCH ×3 (00:57→22:00)
[2021-08-19] MEDS: HYDROCODONE/ACETAMINOPHEN 10/325MG TABLET PO PRN ×3 (05:14→21:43)
[2021-08-19] MEDS: GABAPENTIN 300MG CAPSULE PO SCH ×3 (05:14→21:42)
[2021-08-19] MEDS: HYDRALAZINE HCL 50MG TABLET PO SCH ×3 (05:14→21:42)
[2021-08-19] MEDS: BLOOD SUGAR DIAGNOSTIC STRIP TEST SCH ×4 (06:54→21:00)
[2021-08-19] MEDS: INSULIN LISPRO 100 UNITS/ML SUBCUT SCH ×4 (07:12→21:00)
[2021-08-19] MEDS: PIPERACILLIN/TAZOBACTAM 3.375 G in DEXTROSE 5% WATER 50 ML IV SCH ×2 (08:43→21:44)
[2021-08-19] MEDS: ASPIRIN 81MG EC TABLET PO SCH (08:43)
[2021-08-19] MEDS: FOLIC ACID/VITAMIN B COMP W-C TABLET PO SCH (08:43)
[2021-08-19] MEDS: CALCIUM ACETATE 667MG CAPSULE PO SCH ×3 (08:43→18:31)
[2021-08-19] MEDS: CLOPIDOGREL 75MG TABLET PO SCH (08:44)
[2021-08-19] MEDS: AMLODIPINE 10MG TABLET PO SCH ×2 (09:00→18:34)
[2021-08-20] VITALS: BP 166/66
[2021-08-20 04:00] VITALS: BP 140/63
[2021-08-20 05:56] LABS: BASOPHILS % 1.1 % (0.0-2.0); EOSINOPHILS % 7.7 % (0.0-5.0); HEMATOCRIT. 28.2 % (42.0-52.0); HEMOGLOBIN. 9.1 g/dL (14.0-18.0); LYMPHOCYTES % 21.5 % (20.0-50.0); MEAN CORPUSCULAR HEMOGLOBIN 25.9 pg (28.0-32.0); MEAN CORPUSCULAR VOLUME 80.4 fL (80.0-94.0); MEAN PLATELET VOLUME 9.4 fl (7.4-10.4); MONOCYTES % 7.6 % (2.0-8.0); NEUTROPHILS % 62.1 % (40.0-76.0); PLATELET 132 x1000/uL (130-400); RED BLOOD CELL COUNT 3.51 mill/uL (4.7-6.1); RED CELL DISTRIBUTION WIDTH 19.3 % (11.6-14.6)
[2021-08-20] MEDS: HYDRALAZINE HCL 50MG TABLET PO SCH ×3 (06:00→21:46)
[2021-08-20] MEDS: SODIUM CHLORIDE 0.9% INJ 3ML FLUSH IVF SCH ×2 (06:00→13:24)
[2021-08-20] MEDS: GABAPENTIN 300MG CAPSULE PO SCH ×3 (06:00→21:45)
[2021-08-20] MEDS: BLOOD SUGAR DIAGNOSTIC STRIP TEST SCH ×4 (06:45→21:40)
[2021-08-20] MEDS: INSULIN LISPRO 100 UNITS/ML SUBCUT SCH ×4 (07:37→21:00)
[2021-08-20 08:00] VITALS: BP 149/76
[2021-08-20] MEDS: CALCIUM ACETATE 667MG CAPSULE PO SCH ×3 (09:30→18:54)
[2021-08-20] MEDS: CLOPIDOGREL 75MG TABLET PO SCH (09:30)
[2021-08-20] MEDS: FOLIC ACID/VITAMIN B COMP W-C TABLET PO SCH (09:30)
[2021-08-20] MEDS: AMLODIPINE 10MG TABLET PO SCH (09:30)
[2021-08-20] MEDS: ASPIRIN 81MG EC TABLET PO SCH (09:31)
[2021-08-20] MEDS: PIPERACILLIN/TAZOBACTAM 3.375 G in DEXTROSE 5% WATER 50 ML IV SCH (09:31)
[2021-08-20 12:00] VITALS: BP 113/59
[2021-08-20] MEDS: HYDROCODONE/ACETAMINOPHEN 10/325MG TABLET PO PRN ×2 (12:04→19:53)
[2021-08-20 16:00] VITALS: BP 137/70
[2021-08-20 20:00] VITALS: BP 130/54
[2021-08-21] VITALS: BP 118/50
[2021-08-21 04:00] VITALS: BP 131/53
[2021-08-21] MEDS: GABAPENTIN 300MG CAPSULE PO SCH ×2 (06:12→13:29)
[2021-08-21] MEDS: HYDROCODONE/ACETAMINOPHEN 10/325MG TABLET PO PRN (06:19)
[2021-08-21] MEDS: HYDRALAZINE HCL 50MG TABLET PO SCH ×2 (06:19→13:29)
[2021-08-21 06:47] LABS: BASOPHILS % 0.9 % (0.0-2.0); EOSINOPHILS % 7.6 % (0.0-5.0); HEMATOCRIT. 28.2 % (42.0-52.0); HEMOGLOBIN. 9.2 g/dL (14.0-18.0); LYMPHOCYTES % 21.1 % (20.0-50.0); MEAN CORPUSCULAR HEMOGLOBIN 26.4 pg (28.0-32.0); MEAN CORPUSCULAR VOLUME 81.1 fL (80.0-94.0); MONOCYTES % 8.8 % (2.0-8.0); NEUTROPHILS % 61.6 % (40.0-76.0); RED BLOOD CELL COUNT 3.47 mill/uL (4.7-6.1); RED CELL DISTRIBUTION WIDTH 19.7 % (11.6-14.6)
[2021-08-21] MEDS: BLOOD SUGAR DIAGNOSTIC STRIP TEST SCH ×3 (07:18→16:55)
[2021-08-21 08:00] VITALS: BP 124/57
[2021-08-21] MEDS: INSULIN LISPRO 100 UNITS/ML SUBCUT SCH ×3 (08:10→17:43)
[2021-08-21 08:22] LABS: PLATELET 146 x1000/uL (130-400)
[2021-08-21] MEDS: CLOPIDOGREL 75MG TABLET PO SCH (09:27)
[2021-08-21] MEDS: ASPIRIN 81MG EC TABLET PO SCH (09:27)
[2021-08-21] MEDS: FOLIC ACID/VITAMIN B COMP W-C TABLET PO SCH (09:27)
[2021-08-21] MEDS: AMLODIPINE 10MG TABLET PO SCH (09:27)
[2021-08-21] MEDS: CALCIUM ACETATE 667MG CAPSULE PO SCH ×3 (09:28→18:10)
[2021-08-21 12:00] VITALS: BP 136/69
[2021-08-21 16:00] VITALS: BP 145/63
[2021-08-21 16:45] VITALS: BP 145/63
== END 2021-08-21 18:50 | disposition home or self-care (01) | DRG 628 ==
LOC: ER 10:34 → 7WST 17:07 → EDBEDREQTM 17:12 → EDBEDREQ 17:12 → ENRESERV 23:32
PROVIDERS: ADMIT Internal Medicine; ATTEND Internal Medicine
PROC: 0QBP0ZZ Excision of Left Metatarsal, Open Approach (ICD-10-PCS; principal; 2021-08-18)
PROC: 0Q9P0ZZ Drainage of Left Metatarsal, Open Approach (ICD-10-PCS; 2021-08-18)
PROC: 5A1D70Z Performance of Urinary Filtration, Intermittent, Less than 6 Hours Per Day (ICD-10-PCS; 2021-08-20)
PROC: 5A1D80Z Performance of Urinary Filtration, Prolonged Intermittent, 6-18 hours Per Day (ICD-10-PCS; 2021-08-21)
DX: E11.621 Type 2 diabetes mellitus with foot ulcer (principal); G04.91 Myelitis, unspecified; I12.0 Hypertensive chronic kidney disease with stage 5 chronic kidney disease or end stage renal disease; M86.8X7 Other osteomyelitis, ankle and foot; L02.612 Cutaneous abscess of left foot; E11.69 Type 2 diabetes mellitus with other specified complication; E11.51 Type 2 diabetes mellitus with diabetic peripheral angiopathy without gangrene; N18.6 End stage renal disease; E11.22 Type 2 diabetes mellitus with diabetic chronic kidney disease; E11.40 Type 2 diabetes mellitus with diabetic neuropathy, unspecified; E78.00 Pure hypercholesterolemia, unspecified; E78.5 Hyperlipidemia, unspecified; Z20.822 Contact with and (suspected) exposure to COVID-19; L97.529 Non-pressure chronic ulcer of other part of left foot with unspecified severity; J45.909 Unspecified asthma, uncomplicated; D64.9 Anemia, unspecified; Z99.2 Dependence on renal dialysis; Z83.3 Family history of diabetes mellitus; Z79.82 Long term (current) use of aspirin; Z79.899 Other long term (current) drug therapy; Z79.4 Long term (current) use of insulin; Z79.1 Long term (current) use of non-steroidal anti-inflammatories (NSAID); Z79.02 Long term (current) use of antithrombotics/antiplatelets; Z89.422 Acquired absence of other left toe(s)
CPT/HCPCS: 36415; 73630; 73721; 80048; 80053; 80202; 82962; 83036; 84132; 85025; 86705; 86709; 86803; 87070; 87075; 87077; 87186; 87340; 87426; 88305; 88311; 99285; J0696; J1170; J2250; J2543; J2704; J3010; J3370; J3490; J7060

== ENCOUNTER 2021-10-26 09:55 | Emergency (ER) | payer MEDICARE, MEDICAID ==
[~2021-10-26] VITALS: Ht 167.6 cm; Wt 73.0 kg
[2021-10-26 10:02] VITALS: BP 149/66
[2021-10-26 11:19] LABS: BASOPHILS % 1.3 % (0.0-2.0); EOSINOPHILS % 2.3 % (0.0-5.0); HEMATOCRIT. 42.4 % (42.0-52.0); HEMOGLOBIN. 13.4 g/dL (14.0-18.0); LYMPHOCYTES % 12.5 % (20.0-50.0); MEAN CORPUSCULAR HEMOGLOBIN 27.1 pg (28.0-32.0); MEAN CORPUSCULAR VOLUME 85.9 fL (80.0-94.0); MEAN PLATELET VOLUME 8.6 fl (7.4-10.4); NEUTROPHILS % 75.9 % (40.0-76.0); PLATELET 175 x1000/uL (130-400); RED BLOOD CELL COUNT 4.93 mill/uL (4.7-6.1); RED CELL DISTRIBUTION WIDTH 21.6 % (11.6-14.6)
[2021-10-26 11:28] LABS: CHLORIDE 98 mEq/L (98-107)
[2021-10-26] MEDS ORDERED: CEPH500C2 MT (13:45)
[2021-10-26] MEDS ORDERED: LIDOCAINE HCL/PF 1% 10 MG/ML 5ML VIAL INFIL NR (13:45)
[2021-10-26] MEDS ORDERED: CEFTRIAXONE SODIUM 1 G/VIAL IM NR (13:45)
== END 2021-10-26 13:59 | disposition home or self-care (01) ==
LOC: ER 09:55
DX: N30.90 Cystitis, unspecified without hematuria (principal); I10 Essential (primary) hypertension; E78.00 Pure hypercholesterolemia, unspecified; E11.9 Type 2 diabetes mellitus without complications; Z79.899 Other long term (current) drug therapy
CPT/HCPCS: 36415; 74176; 76870; 80053; 83690; 85025; 93976; 96372; 99284; J0696; J3490

== ENCOUNTER 2023-02-19 07:32 | Inpatient (IN) | payer MEDICARE, MEDICAID ==
[~2023-02-19] VITALS: Ht 167.6 cm; Wt 77.1 kg
[~2023-02-19 07:32] MED LIST changes: +CEPH500C2 MT; +ENAL-79 PO; -ENAL20TA18 PO; -INSU100V37 SQ; +INSU100V43 SQ
[2023-02-19 08:11] LABS: BASOPHILS % 0.3 % (0.0-2.0); HEMATOCRIT. 35.8 % (42.0-52.0); HEMOGLOBIN. 11.3 g/dL (14.0-18.0); LYMPHOCYTES % 15.3 % (20.0-50.0); MEAN CORPUSCULAR HGB CONC 31.5 g/dL (31.0-37.0); MEAN CORPUSCULAR VOLUME 95.4 fL (80.0-94.0); MEAN PLATELET VOLUME 9.3 fl (7.4-10.4); MONOCYTES % 7.7 % (2.0-8.0); NEUTROPHILS % 72.7 % (40.0-76.0); PLATELET 202 x1000/uL (130-400); RED BLOOD CELL COUNT 3.75 mill/uL (4.7-6.1); RED CELL DISTRIBUTION WIDTH 19.6 % (11.6-14.6); WHITE BLOOD COUNT 6.6 x1000/uL (4.5-11.0)
[2023-02-19 08:31] LABS: ALANINE AMINOTRANSFERASE 18 IU/L (10-49); ALBUMIN 4.4 g/dL (3.2-4.8); ASPARTATE AMINOTRANSFERASE 25 IU/L (<34); BILIRUBIN TOTAL 0.2 mg/dL (0.1-1.0); CALCIUM 9.2 mg/dL (8.7-10.4); CARBON DIOXIDE 31 mEq/L (21-32); CHLORIDE 97 mEq/L (98-107); GLUCOSE 220 mg/dL (70-105); POTASSIUM 5.2 mEq/L (3.5-5.1); SODIUM 138 mEq/L (136-145); UREA NITROGEN BLOOD 36 mg/dL (9-23)
[2023-02-19 08:35] LABS: CREATININE 7.6 mg/dL (0.6-1.3)
[2023-02-19] MEDS ORDERED: PIPERACILLIN/TAZOBACTAM 3.375GM/50ML PREMIX IV STA (11:21)
[2023-02-19] MEDS ORDERED: VANCOMYCIN 1G PREMIX 200 ML IV STA (11:21)
[2023-02-19] MEDS ORDERED: PIPERACILLIN/TAZ 3.375G PREMIX 50 ML IV NR (11:25)
[2023-02-19 15:06] LABS: INR 1.1; PROTHROMBIN TIME 11.4 sec (9.6-11.0)
[2023-02-19] MEDS ORDERED: MAGNESIUM/ALUMINUM HYDROXIDE/SIMETHICONE 30ML UDC PO PRN (17:30)
[2023-02-19] MEDS ORDERED: HYDROCODONE/ACETAMINOPHEN 10/325MG TABLET PO PRN (17:30)
[2023-02-19] MEDS ORDERED: DEXTROSE 50% WATER 50ML SYRINGE IV PRN (17:30)
[2023-02-19] MEDS ORDERED: CLONIDINE 0.1MG TABLET PO PRN (17:30)
[2023-02-19] MEDS ORDERED: ACETAMINOPHEN 325MG TABLET PO PRN ×2 (17:30)
[2023-02-19] MEDS ORDERED: DIPHENHYDRAMINE 50MG/ML VIAL IV PRN (17:30)
[2023-02-19] MEDS ORDERED: ONDANSETRON HCL 4MG/2ML INJ IV PRN (17:30)
[2023-02-19] MEDS ORDERED: ZOLPIDEM TARTRATE 5MG TABLET PO PRN (20:00)
[2023-02-19] MEDS: BLOOD SUGAR DIAGNOSTIC STRIP TEST SCH ×2 (20:30→21:00)
[2023-02-19] MEDS: INSULIN LISPRO 100 UNITS/ML SUBCUT SCH ×2 (20:40→21:00)
[2023-02-19] MEDS: SODIUM CHLORIDE 0.9% INJ 3ML FLUSH IVF SCH (22:00)
[2023-02-19 23:49] VITALS: BP 127/62; PULSE 67; RESP 20; TEMP 97
[2023-02-20] VITALS (9 sets, daily range): BP systolic 104–165; BP diastolic 49–80; PULSE 60–94; RESP 17–18; TEMP 97.4–97.8
[2023-02-20] MEDS: SODIUM CHLORIDE 0.9% INJ 3ML FLUSH IVF SCH ×3 (05:25→22:16)
[2023-02-20] MEDS: BLOOD SUGAR DIAGNOSTIC STRIP TEST SCH ×4 (05:59→21:00)
[2023-02-20] MEDS: INSULIN LISPRO 100 UNITS/ML SUBCUT SCH ×4 (07:50→22:29)
[2023-02-20] MEDS: CALCIUM ACETATE 667MG CAPSULE PO SCH ×3 (09:49→18:20)
[2023-02-20] MEDS: FOLIC ACID/VITAMIN B COMP W-C TABLET PO SCH (09:49)
[2023-02-20] MEDS: AMLODIPINE 5MG TABLET PO SCH ×2 (09:58→21:00)
[2023-02-20] MEDS ORDERED: LIDOCAINE HCL 1% 10 MG/ML 10ML VIAL ONE (12:25)
[2023-02-20] MEDS ORDERED: SODIUM CHLORIDE 0.9% IRRIG SOLUTION 1000ML IR NR (12:45)
[2023-02-20] MEDS ORDERED: IOHEXOL-350 100 ML BOTTLE ONE (14:44)
[2023-02-20] MEDS: PIPERACILLIN/TAZOBACTAM 3.375 G in DEXTROSE 5% WATER 50 ML IV SCH ×2 (14:47→22:25)
[2023-02-20 17:44] LABS: HEPATITIS A AB IGM NEGATIVE (Negative); HEPATITIS B CORE AB IGM NEGATIVE (Negative); HEPATITIS B SURFACE ANTIGEN NEGATIVE (Negative); HEPATITIS C AB NON REACTIVE (Neg) (Negative)
[2023-02-20] MEDS ORDERED: NALOXONE HCL 0.4MG/ML VIAL IV PRN (19:30)
[2023-02-21] VITALS (13 sets, daily range): BP systolic 50–137; BP diastolic 5–68; PULSE 51–84; RESP 16–20; TEMP 97–98.6
[2023-02-21] MEDS: SODIUM CHLORIDE 0.9% INJ 3ML FLUSH IVF SCH ×3 (07:30→21:41)
[2023-02-21] MEDS: CALCIUM ACETATE 667MG CAPSULE PO SCH ×3 (07:50→18:19)
[2023-02-21] MEDS: INSULIN LISPRO 100 UNITS/ML SUBCUT SCH ×4 (07:50→21:00)
[2023-02-21 07:59] LABS: BASOPHILS % 0.6 % (0.0-2.0); EOSINOPHILS % 3.2 % (0.0-5.0); HEMATOCRIT. 31.4 % (42.0-52.0); HEMOGLOBIN. 10.1 g/dL (14.0-18.0); LYMPHOCYTES % 18.9 % (20.0-50.0); MEAN CORPUSCULAR HEMOGLOBIN 29.7 pg (28.0-32.0); MEAN CORPUSCULAR HGB CONC 32.2 g/dL (31.0-37.0); MEAN CORPUSCULAR VOLUME 92.3 fL (80.0-94.0); MEAN PLATELET VOLUME 8.5 fl (7.4-10.4); MONOCYTES % 9.5 % (2.0-8.0); NEUTROPHILS % 67.8 % (40.0-76.0); PLATELET 213 x1000/uL (130-400); WHITE BLOOD COUNT 6.3 x1000/uL (4.5-11.0)
[2023-02-21 08:23] LABS: CALCIUM 8.8 mg/dL (8.7-10.4); POTASSIUM 5.3 mEq/L (3.5-5.1)
[2023-02-21 08:41] LABS: CREATININE 8.9 mg/dL (0.6-1.3)
[2023-02-21] MEDS ORDERED: DEXT 5%/0.45% NACL 500ML 500 ML IV ONE (09:00)
[2023-02-21] MEDS: AMLODIPINE 5MG TABLET PO SCH ×2 (09:00→21:00)
[2023-02-21] MEDS: FOLIC ACID/VITAMIN B COMP W-C TABLET PO SCH (09:00)
[2023-02-21] MEDS: PIPERACILLIN/TAZOBACTAM 3.375 G in DEXTROSE 5% WATER 50 ML IV SCH ×2 (09:12→20:51)
[2023-02-21] MEDS: BLOOD SUGAR DIAGNOSTIC STRIP TEST SCH ×3 (13:19→21:00)
[2023-02-22] VITALS: BP 129/49; PULSE 58; RESP 18; TEMP 99.1
[2023-02-22 04:00] VITALS: BP 132/41; PULSE 61; RESP 18; TEMP 98.3
[2023-02-22] MEDS: SODIUM CHLORIDE 0.9% INJ 3ML FLUSH IVF SCH ×3 (06:00→22:11)
[2023-02-22 06:33] LABS: BASOPHILS % 0.7 % (0.0-2.0); EOSINOPHILS % 5.7 % (0.0-5.0); HEMATOCRIT. 29.3 % (42.0-52.0); HEMOGLOBIN. 9.3 g/dL (14.0-18.0); LYMPHOCYTES % 19.9 % (20.0-50.0); MEAN CORPUSCULAR HEMOGLOBIN 29.4 pg (28.0-32.0); MEAN CORPUSCULAR HGB CONC 31.8 g/dL (31.0-37.0); MEAN CORPUSCULAR VOLUME 92.4 fL (80.0-94.0); MEAN PLATELET VOLUME 8.8 fl (7.4-10.4); MONOCYTES % 10.1 % (2.0-8.0); NEUTROPHILS % 63.6 % (40.0-76.0); PLATELET 203 x1000/uL (130-400); RED BLOOD CELL COUNT 3.17 mill/uL (4.7-6.1); WHITE BLOOD COUNT 5.3 x1000/uL (4.5-11.0)
[2023-02-22 07:17] LABS: CALCIUM 8.7 mg/dL (8.7-10.4); POTASSIUM 5.6 mEq/L (3.5-5.1)
[2023-02-22] MEDS: BLOOD SUGAR DIAGNOSTIC STRIP TEST SCH ×3 (07:17→21:00)
[2023-02-22 07:22] LABS: CREATININE 7.8 mg/dL (0.6-1.3)
[2023-02-22] MEDS: INSULIN LISPRO 100 UNITS/ML SUBCUT SCH ×4 (07:50→22:03)
[2023-02-22 08:00] VITALS: BP 126/55; PULSE 61; RESP 18; TEMP 99.3
[2023-02-22] MEDS ORDERED: ALBUTEROL (0.083%) 2.5MG/3ML NEB HHN SCH (10:00)
[2023-02-22] MEDS ORDERED: ALBUTEROL (0.5%) 2.5MG/0.5ML NEB HHN NR (10:00)
[2023-02-22 12:00] VITALS: BP 135/98; PULSE 61; RESP 18; TEMP 97.5
[2023-02-22] MEDS ORDERED: LIDOCAINE HCL 1% 20ML VIAL (Pyxis) INJ ONE (12:07)
[2023-02-22] MEDS ORDERED: HEPARIN 1000 UNITS/ML 10ML ONE (12:07)
[2023-02-22] MEDS ORDERED: IODIXANOL 320 MG/ML 150ML BOTTLE IV ONE (12:08)
[2023-02-22] MEDS: CALCIUM ACETATE 667MG CAPSULE PO SCH ×3 (12:50→17:50)
[2023-02-22] MEDS ORDERED: MIDAZOLAM HCL 2 MG/2 ML VIAL ONE (13:49)
[2023-02-22] MEDS ORDERED: FENTANYL CITRATE/PF 50MCG/ML 2ML VIAL ONE (13:49)
[2023-02-22 16:00] VITALS: BP 140/99; PULSE 61; RESP 18; TEMP 98.1
[2023-02-22] MEDS: PIPERACILLIN/TAZOBACTAM 3.375 G in DEXTROSE 5% WATER 50 ML IV SCH ×2 (16:16→22:02)
[2023-02-22] MEDS: FOLIC ACID/VITAMIN B COMP W-C TABLET PO SCH (16:18)
[2023-02-22] MEDS: AMLODIPINE 5MG TABLET PO SCH ×2 (16:18→21:00)
[2023-02-22 20:00] VITALS: BP 131/37; PULSE 66; RESP 18; TEMP 98.2
[2023-02-23] VITALS (14 sets, daily range): BP systolic 110–135; BP diastolic 33–102; PULSE 56–69; RESP 16–20; TEMP 97.2–99.2; O2SAT 100
[2023-02-23] MEDS: SODIUM CHLORIDE 0.9% INJ 3ML FLUSH IVF SCH ×3 (06:00→20:29)
[2023-02-23] MEDS: INSULIN LISPRO 100 UNITS/ML SUBCUT SCH ×4 (07:50→21:49)
[2023-02-23] MEDS: BLOOD SUGAR DIAGNOSTIC STRIP TEST SCH ×4 (07:52→20:28)
[2023-02-23] MEDS: PIPERACILLIN/TAZOBACTAM 3.375 G in DEXTROSE 5% WATER 50 ML IV SCH ×2 (08:56→20:24)
[2023-02-23] MEDS: AMLODIPINE 5MG TABLET PO SCH ×2 (08:56→20:25)
[2023-02-23] MEDS: FOLIC ACID/VITAMIN B COMP W-C TABLET PO SCH (08:56)
[2023-02-23] MEDS: CALCIUM ACETATE 667MG CAPSULE PO SCH ×3 (08:57→17:59)
[2023-02-23] MEDS ORDERED: AMOX1TAB15 PO (14:33)
[2023-02-23] MEDS ORDERED: CLOP-31 MT (15:15)
[2023-02-23] MEDS: CLOPIDOGREL 75MG TABLET PO SCH (17:59)
[2023-02-23 21:55] LABS: POTASSIUM 4.3 mEq/L (3.5-5.1)
[2023-02-24] VITALS: BP 112/46; PULSE 69; RESP 16; TEMP 97.8
[2023-02-24] MEDS: SODIUM CHLORIDE 0.9% INJ 3ML FLUSH IVF SCH (05:42)
[2023-02-24] MEDS: INSULIN LISPRO 100 UNITS/ML SUBCUT SCH ×2 (05:42→12:45)
[2023-02-24] MEDS: BLOOD SUGAR DIAGNOSTIC STRIP TEST SCH ×2 (05:42→12:45)
[2023-02-24 08:00] VITALS: BP 125/54; PULSE 65; RESP 20; TEMP 98.2
[2023-02-24] MEDS: CLOPIDOGREL 75MG TABLET PO SCH (08:32)
[2023-02-24] MEDS: FOLIC ACID/VITAMIN B COMP W-C TABLET PO SCH (08:32)
[2023-02-24] MEDS: AMLODIPINE 5MG TABLET PO SCH (08:32)
[2023-02-24] MEDS: CALCIUM ACETATE 667MG CAPSULE PO SCH ×2 (08:32→13:25)
[2023-02-24] MEDS: PIPERACILLIN/TAZOBACTAM 3.375 G in DEXTROSE 5% WATER 50 ML IV SCH (08:33)
[2023-02-24 12:00] VITALS: BP 131/72; PULSE 63; RESP 20; TEMP 98
== END 2023-02-24 16:27 | disposition home health service (06) | DRG 252 ==
LOC: ER 07:32 → 6WST 12:31 → EDBEDREQ 12:36
PROVIDERS: ADMIT Internal Medicine; ATTEND Internal Medicine
PROC: 02HV33Z Insertion of Infusion Device into Superior Vena Cava, Percutaneous Approach (ICD-10-PCS; 2023-02-20)
PROC: B5181ZA Fluoroscopy of Superior Vena Cava using Low Osmolar Contrast, Guidance (ICD-10-PCS; 2023-02-20)
PROC: B548ZZA Ultrasonography of Superior Vena Cava, Guidance (ICD-10-PCS; 2023-02-20)
PROC: 5A1D70Z Performance of Urinary Filtration, Intermittent, Less than 6 Hours Per Day (ICD-10-PCS; 2023-02-20)
PROC: 5A1D70Z Performance of Urinary Filtration, Intermittent, Less than 6 Hours Per Day (ICD-10-PCS; 2023-02-21)
PROC: 047M3ZZ Dilation of Right Popliteal Artery, Percutaneous Approach (ICD-10-PCS; principal; 2023-02-22)
PROC: 047R3ZZ Dilation of Right Posterior Tibial Artery, Percutaneous Approach (ICD-10-PCS; 2023-02-22)
PROC: B41G1ZZ Fluoroscopy of Left Lower Extremity Arteries using Low Osmolar Contrast (ICD-10-PCS; 2023-02-22)
PROC: B41F1ZZ Fluoroscopy of Right Lower Extremity Arteries using Low Osmolar Contrast (ICD-10-PCS; 2023-02-22)
PROC: 5A1D70Z Performance of Urinary Filtration, Intermittent, Less than 6 Hours Per Day (ICD-10-PCS; 2023-02-23)
DX: E11.52 Type 2 diabetes mellitus with diabetic peripheral angiopathy with gangrene (principal); N18.6 End stage renal disease; I12.0 Hypertensive chronic kidney disease with stage 5 chronic kidney disease or end stage renal disease; E78.00 Pure hypercholesterolemia, unspecified; E11.40 Type 2 diabetes mellitus with diabetic neuropathy, unspecified; E11.22 Type 2 diabetes mellitus with diabetic chronic kidney disease; D64.9 Anemia, unspecified; J45.909 Unspecified asthma, uncomplicated; Z79.4 Long term (current) use of insulin; Z99.2 Dependence on renal dialysis; Z79.899 Other long term (current) drug therapy; Z79.82 Long term (current) use of aspirin; Z83.3 Family history of diabetes mellitus; Z20.822 Contact with and (suspected) exposure to COVID-19
CPT/HCPCS: 36415; 36573; 37224; 37228; 73630; 75635; 75710; 80048; 80053; 82962; 83036; 84132; 85025; 85347; 86705; 86709; 86850; 86900; 87070; 87077; 87186; 87340; 87426; 90935; 96365; 96368; 97162; 99285; C1725; C1760; C1769; C1887; C1893; C1894; J1644; J1815; J2250; J2543; J3010; J3370; J3490; J7060; Q9967

== ENCOUNTER 2023-03-01 05:27 | Inpatient (IN) | payer MEDICARE, MEDICAID ==
[~2023-03-01] VITALS: Ht 167.6 cm; Wt 77.0 kg
[~2023-03-01 05:27] MED LIST changes: +AMOX1TAB15 PO; -CEPH500C2 MT
[2023-03-01] MEDS ORDERED: SODIUM CHLORIDE 0.9% 100 ML IV SCH (06:00)
[2023-03-01 06:21] LABS: CALCIUM 9.1 mg/dL (8.7-10.4); POTASSIUM 4.6 mEq/L (3.5-5.1)
[2023-03-01 06:35] LABS: CREATININE 9.7 mg/dL (0.6-1.3)
[2023-03-01] MEDS ORDERED: LIDOCAINE HCL 1% 20ML VIAL (Pyxis) INJ ONE ×2 (06:47→16:15)
[2023-03-01] MEDS ORDERED: POLYMYXIN B SULFATE 500000 UNITS/VIAL ONE (06:48)
[2023-03-01] MEDS ORDERED: BUPIVACAINE HCL/PF 0.5% (5MG/ML) 10ML ONE ×2 (06:48→16:15)
[2023-03-01] MEDS ORDERED: PROPOFOL 200MG/20ML VIAL IV ONE ×3 (07:21→18:18)
[2023-03-01] MEDS ORDERED: FENTANYL CITRATE/PF 50MCG/ML 2ML VIAL IV PRN (07:30)
[2023-03-01] MEDS ORDERED: HYDROMORPHONE HCL/PF 2MG/ML CPJ IV PRN ×2 (07:30→18:45)
[2023-03-01] MEDS ORDERED: MEPERIDINE HCL/PF 25MG/ML CPJ IV PRN ×2 (07:30→18:45)
[2023-03-01] MEDS ORDERED: ONDANSETRON HCL 4MG/2ML INJ IV PRN ×2 (07:30→18:45)
[2023-03-01] MEDS ORDERED: DEXT 5%/0.45% NACL 1000ML 1,000 ML IV ONE (11:30)
[2023-03-01 12:00] VITALS: BP 124/61; PULSE 59; RESP 19; TEMP 97.7
[2023-03-01] MEDS ORDERED: DEXTROSE 50% WATER 50ML SYRINGE IV PRN (13:15)
[2023-03-01 16:00] VITALS: BP 142/70; PULSE 60; RESP 19; TEMP 97.9
[2023-03-01] MEDS: INSULIN LISPRO 100 UNITS/ML SUBCUT SCH ×2 (17:13→21:00)
[2023-03-01] MEDS: BLOOD SUGAR DIAGNOSTIC STRIP TEST SCH ×2 (17:13→21:00)
[2023-03-01] MEDS ORDERED: MIDAZOLAM HCL 2 MG/2 ML VIAL ONE (17:30)
[2023-03-01] MEDS ORDERED: FENTANYL CITRATE/PF 50MCG/ML 2ML VIAL ONE (17:30)
[2023-03-01] MEDS ORDERED: VANCOMYCIN HCL 1 GM/VIAL ONE (18:21)
[2023-03-01] MEDS ORDERED: LABETALOL 5MG/ML SYR 20 MG/4 ML SYRINGE IV PRN (18:45)
[2023-03-01] MEDS ORDERED: BACITRACIN 14GM TUBE TOP ONE (19:12)
[2023-03-01] MEDS: ACETAMINOPHEN 325MG TABLET PO PRN (22:16)
[2023-03-02] VITALS (9 sets, daily range): BP systolic 107–165; BP diastolic 40–90; PULSE 60–85; RESP 18–20; TEMP 97.4–99.1
[2023-03-02] MEDS: ACETAMINOPHEN 325MG TABLET PO PRN ×3 (06:30→21:03)
[2023-03-02] MEDS: INSULIN LISPRO 100 UNITS/ML SUBCUT SCH ×4 (07:33→21:00)
[2023-03-02] MEDS: BLOOD SUGAR DIAGNOSTIC STRIP TEST SCH ×4 (07:33→21:00)
[2023-03-02] MEDS: AMOXICILLIN/POTASSIUM CLAVULANATE 500/125MG TAB PO SCH (21:00)
[2023-03-02 21:48] LABS: HEPATITIS A AB IGM NEGATIVE (Negative); HEPATITIS B CORE AB IGM NEGATIVE (Negative); HEPATITIS B SURFACE ANTIGEN NEGATIVE (Negative); HEPATITIS C AB NON REACTIVE (Neg) (Negative)
[2023-03-03] MEDS: BLOOD SUGAR DIAGNOSTIC STRIP TEST SCH ×4 (07:20→21:00)
[2023-03-03] MEDS: INSULIN LISPRO 100 UNITS/ML SUBCUT SCH ×4 (07:50→21:00)
[2023-03-03 08:00] VITALS: BP 138/55; PULSE 71; RESP 20; TEMP 98.9
[2023-03-03] MEDS: ACETAMINOPHEN 325MG TABLET PO PRN ×3 (08:18→21:38)
[2023-03-03 12:00] VITALS: BP 121/59; PULSE 57; RESP 20; TEMP 98.7
[2023-03-03 16:00] VITALS: BP 153/61; PULSE 72; RESP 20; TEMP 98.7
[2023-03-03] MEDS: AMOXICILLIN/POTASSIUM CLAVULANATE 500/125MG TAB PO SCH (21:39)
[2023-03-04] VITALS (8 sets, daily range): BP systolic 115–144; BP diastolic 56–77; PULSE 60–88; RESP 17–20; TEMP 96.6–100; O2SAT 98
[2023-03-04] MEDS: BLOOD SUGAR DIAGNOSTIC STRIP TEST SCH ×2 (07:20→12:20)
[2023-03-04 07:39] LABS: BASOPHILS % 0.4 % (0.0-2.0); EOSINOPHILS % 3.9 % (0.0-5.0); HEMATOCRIT. 26.7 % (42.0-52.0); HEMOGLOBIN. 8.4 g/dL (14.0-18.0); MEAN CORPUSCULAR HEMOGLOBIN 29.2 pg (28.0-32.0); MEAN CORPUSCULAR HGB CONC 31.3 g/dL (31.0-37.0); MEAN CORPUSCULAR VOLUME 93.1 fL (80.0-94.0); MEAN PLATELET VOLUME 9.3 fl (7.4-10.4); MONOCYTES % 8.3 % (2.0-8.0); NEUTROPHILS % 71.4 % (40.0-76.0); PLATELET 230 x1000/uL (130-400); RED BLOOD CELL COUNT 2.87 mill/uL (4.7-6.1); WHITE BLOOD COUNT 6.7 x1000/uL (4.5-11.0)
[2023-03-04] MEDS: INSULIN LISPRO 100 UNITS/ML SUBCUT SCH ×2 (07:50→12:50)
[2023-03-04 07:53] LABS: CALCIUM 8.9 mg/dL (8.7-10.4)
[2023-03-04 07:59] LABS: CREATININE 12.5 mg/dL (0.6-1.3)
[2023-03-04] MEDS: ACETAMINOPHEN 325MG TABLET PO PRN ×2 (09:34→20:00)
== END 2023-03-04 20:08 | DRG 239 ==
LOC: OR 05:27 → 6EST 09:12
PROVIDERS: ADMIT Internal Medicine; ATTEND Internal Medicine
PROC: 5A1D70Z Performance of Urinary Filtration, Intermittent, Less than 6 Hours Per Day (ICD-10-PCS; 2023-03-02)
PROC: 0Y6M0Z9 Detachment at Right Foot, Partial 1st Ray, Open Approach (ICD-10-PCS; principal; 2023-03-04)
PROC: 0Y6M0ZB Detachment at Right Foot, Partial 2nd Ray, Open Approach (ICD-10-PCS; 2023-03-04)
PROC: 0Y6M0ZC Detachment at Right Foot, Partial 3rd Ray, Open Approach (ICD-10-PCS; 2023-03-04)
PROC: 0Y6M0ZD Detachment at Right Foot, Partial 4th Ray, Open Approach (ICD-10-PCS; 2023-03-04)
PROC: 5A1D70Z Performance of Urinary Filtration, Intermittent, Less than 6 Hours Per Day (ICD-10-PCS; 2023-03-04)
DX: E11.52 Type 2 diabetes mellitus with diabetic peripheral angiopathy with gangrene (principal); N18.6 End stage renal disease; I12.0 Hypertensive chronic kidney disease with stage 5 chronic kidney disease or end stage renal disease; E78.00 Pure hypercholesterolemia, unspecified; J45.909 Unspecified asthma, uncomplicated; E11.22 Type 2 diabetes mellitus with diabetic chronic kidney disease; D64.9 Anemia, unspecified; Z83.3 Family history of diabetes mellitus; Z99.2 Dependence on renal dialysis; Z79.4 Long term (current) use of insulin
CPT/HCPCS: 36415; 73630; 80048; 82962; 83036; 85025; 86705; 86709; 87340; 88304; 88311; 90935; 93005; 97110; 97116; 97162; J1815; J2250; J2704; J3010; J3370; J3490

== ENCOUNTER 2023-05-30 11:28 | Inpatient (IN) | payer MEDICARE, MEDICAID ==
[2023-05-30] VITALS (13 sets, daily range): BP systolic 106–156; BP diastolic 57–88; PULSE 85–103; RESP 17–18; TEMP 97.1–98.6; O2SAT 99
[~2023-05-30] VITALS: Ht 165.1 cm; Wt 69.9 kg
[~2023-05-30 11:28] MED LIST changes: -AMOX1TAB15 MT; -DICL75TA5 PO; -ENAL-79 PO; -HYDR-4135 PO; +HYDR50TA40 PO; -INSU100V43 SQ; -LANTUSUD SUBCUT; -TOPUD PO
[2023-05-30] MEDS: SODIUM CHLORIDE 0.9% 500 ML IV ONE (12:08)
[2023-05-30 12:39] LABS: HEMATOCRIT. 37.4 % (42.0-52.0); HEMOGLOBIN. 11.8 g/dL (14.0-18.0); MEAN CORPUSCULAR HEMOGLOBIN 28.5 pg (28.0-32.0); MEAN CORPUSCULAR HGB CONC 31.6 g/dL (31.0-37.0); MEAN PLATELET VOLUME 9.4 fl (7.4-10.4); PLATELET 200 x1000/uL (130-400); RED BLOOD CELL COUNT 4.15 mill/uL (4.7-6.1); RED CELL DISTRIBUTION WIDTH 21.8 % (11.6-14.6); WHITE BLOOD COUNT 11.1 x1000/uL (4.5-11.0)
[2023-05-30 12:41] LABS: DIFFERENTIAL COMMENT 1
[2023-05-30 12:49] LABS: INR 1.1; PROTHROMBIN TIME 12.2 sec (9.6-11.0)
[2023-05-30 12:54] LABS: ALANINE AMINOTRANSFERASE 16 IU/L (10-49); ALBUMIN 4.5 g/dL (3.2-4.8); ASPARTATE AMINOTRANSFERASE 40 IU/L (<34); BILIRUBIN TOTAL < 0.2 mg/dL (0.1-1.0); CALCIUM 9.5 mg/dL (8.7-10.4); CARBON DIOXIDE 24 mEq/L (21-32); CHLORIDE 96 mEq/L (98-107); GLUCOSE 107 mg/dL (70-105); POTASSIUM 5.3 mEq/L (3.5-5.1); PROTEIN TOTAL 8.3 g/dL (6.0-8.3); SODIUM 134 mEq/L (136-145)
[2023-05-30 13:05] LABS: CREATININE 15.7 mg/dL (0.6-1.3)
[2023-05-30 13:07] LABS: UREA NITROGEN BLOOD 125 mg/dL (9-23)
[2023-05-30 13:15] LABS: PLATELET ESTIMATE NORMAL
[2023-05-30 13:16] LABS: ANISOCYTOSIS 2+
[2023-05-30] MEDS ORDERED: DEXTROSE 50% WATER 50ML SYRINGE IV PRN (16:15)
[2023-05-30] MEDS ORDERED: CLONIDINE 0.1MG TABLET PO PRN (16:15)
[2023-05-30] MEDS ORDERED: MAGNESIUM/ALUMINUM HYDROXIDE/SIMETHICONE 30ML UDC PO PRN (16:15)
[2023-05-30] MEDS ORDERED: ONDANSETRON HCL 4MG/2ML INJ IV PRN (16:15)
[2023-05-30] MEDS ORDERED: DIPHENHYDRAMINE 50MG/ML VIAL IV PRN (16:15)
[2023-05-30] MEDS ORDERED: ZOLPIDEM TARTRATE 5MG TABLET PO PRN (16:15)
[2023-05-30] MEDS ORDERED: IPRATROPIUM/ALBUTEROL 0.5-3(2.5)MG/3ML NEB HHN PRN (16:15)
[2023-05-30] MEDS: BLOOD SUGAR DIAGNOSTIC STRIP TEST SCH (17:09)
[2023-05-30] MEDS: INSULIN LISPRO 100 UNITS/ML SUBCUT SCH (17:09)
[2023-05-30] MEDS: ENOXAPARIN 30MG/0.3ML SYR SUBCUT SCH (17:11)
[2023-05-30] MEDS: ACETAMINOPHEN 325MG TABLET PO PRN (17:11)
[2023-05-30 20:34] LABS: HEPATITIS A AB IGM NEGATIVE (Negative); HEPATITIS B CORE AB IGM NEGATIVE (Negative); HEPATITIS B SURFACE ANTIGEN NEGATIVE (Negative); HEPATITIS C AB NON REACTIVE (Neg) (Negative)
[2023-05-30] MEDS: SODIUM CHLORIDE 0.9% INJ 3ML FLUSH IVF SCH (22:57)
[2023-05-31] VITALS: BP 138/71; PULSE 96; RESP 19; TEMP 98.4
[2023-05-31 04:00] VITALS: BP 140/70; PULSE 75; RESP 16; TEMP 97.4
[2023-05-31 08:00] VITALS: BP 162/81; PULSE 89; RESP 18; TEMP 99.5
[2023-05-31 12:00] VITALS: BP 117/58; PULSE 79; RESP 18; TEMP 97.7
[2023-05-31 16:00] VITALS: BP 108/69; PULSE 110; RESP 19; TEMP 98.6
[2023-05-31 20:00] VITALS: BP 107/66; PULSE 16; RESP 16; TEMP 97
[2023-06-01] VITALS (11 sets, daily range): BP systolic 105–133; BP diastolic 59–76; PULSE 17–88; RESP 16–22; TEMP 96.6–98.6
[2023-06-01 07:58] LABS: HEMOGLOBIN. 11.4 g/dL (14.0-18.0); MEAN CORPUSCULAR HEMOGLOBIN 28.4 pg (28.0-32.0); MEAN CORPUSCULAR HGB CONC 32.4 g/dL (31.0-37.0); MEAN CORPUSCULAR VOLUME 87.5 fL (80.0-94.0); MEAN PLATELET VOLUME 8.8 fl (7.4-10.4); PLATELET 171 x1000/uL (130-400); RED CELL DISTRIBUTION WIDTH 20.4 % (11.6-14.6); WHITE BLOOD COUNT 4.9 x1000/uL (4.5-11.0)
[2023-06-01 08:34] LABS: DIFFERENTIAL COMMENT 1
[2023-06-01 08:49] LABS: CALCIUM 9.3 mg/dL (8.7-10.4); POTASSIUM 4.5 mEq/L (3.5-5.1)
[2023-06-01 08:55] LABS: CREATININE 14.4 mg/dL (0.6-1.3)
[2023-06-01 15:51] LABS: ANISOCYTOSIS 2+; PLATELET ESTIMATE NORMAL
[2023-06-01] MEDS: ACETAMINOPHEN 325MG TABLET PO PRN (20:02)
== END 2023-06-01 20:06 | disposition home or self-care (01) | DRG 640 ==
LOC: ER 11:28 → 6EST 13:16 → EDBEDREQTM 13:18 → EDBEDREQ 13:18
PROVIDERS: ADMIT Internal Medicine; ATTEND Internal Medicine
PROC: 5A1D70Z Performance of Urinary Filtration, Intermittent, Less than 6 Hours Per Day (ICD-10-PCS; principal; 2023-05-30)
PROC: 5A1D70Z Performance of Urinary Filtration, Intermittent, Less than 6 Hours Per Day (ICD-10-PCS; 2023-05-31)
PROC: 5A1D70Z Performance of Urinary Filtration, Intermittent, Less than 6 Hours Per Day (ICD-10-PCS; 2023-06-01)
DX: R62.7 Adult failure to thrive (principal); N18.6 End stage renal disease; I13.2 Hypertensive heart and chronic kidney disease with heart failure and with stage 5 chronic kidney disease, or end stage renal disease; E87.20 Acidosis, unspecified; E87.5 Hyperkalemia; L97.519 Non-pressure chronic ulcer of other part of right foot with unspecified severity; E11.51 Type 2 diabetes mellitus with diabetic peripheral angiopathy without gangrene; Z68.25 Body mass index [BMI] 25.0-25.9, adult; E11.9 Type 2 diabetes mellitus without complications; Z99.2 Dependence on renal dialysis; J45.909 Unspecified asthma, uncomplicated; E11.22 Type 2 diabetes mellitus with diabetic chronic kidney disease; E78.00 Pure hypercholesterolemia, unspecified; I50.9 Heart failure, unspecified; E11.621 Type 2 diabetes mellitus with foot ulcer
CPT/HCPCS: 36415; 71045; 80048; 80053; 82962; 83036; 83605; 83880; 85025; 86705; 86709; 87340; 90935; 93005; 97162; 97166; 97530; 97535; 99285; J1650; J1815; J7030

== ENCOUNTER 2023-06-17 00:10 | Inpatient (IN) | payer MEDICARE, MEDICAID ==
[2023-06-17] VITALS (12 sets, daily range): BP systolic 95–140; BP diastolic 48–79; PULSE 63–69; RESP 16–20; TEMP 96.9–98.6
[~2023-06-17] VITALS: Ht 165.1 cm; Wt 77.6 kg
[2023-06-17] MEDS ORDERED: ACETAMINOPHEN 325MG TABLET PO PRN (01:30)
[2023-06-17] MEDS ORDERED: IPRATROPIUM/ALBUTEROL 0.5-3(2.5)MG/3ML NEB HHN PRN (01:30)
[2023-06-17] MEDS: SODIUM CHLORIDE 0.9% INJ 3ML FLUSH IVF ONE (06:55)
[2023-06-17 07:19] LABS: BASOPHILS % 0.5 % (0.0-2.0); EOSINOPHILS % 5.2 % (0.0-5.0); HEMATOCRIT. 25.9 % (42.0-52.0); HEMOGLOBIN. 8.6 g/dL (14.0-18.0); LYMPHOCYTES % 15.1 % (20.0-50.0); MEAN CORPUSCULAR HEMOGLOBIN 28.8 pg (28.0-32.0); MEAN CORPUSCULAR HGB CONC 33.3 g/dL (31.0-37.0); MEAN CORPUSCULAR VOLUME 86.6 fL (80.0-94.0); MEAN PLATELET VOLUME 10.4 fl (7.4-10.4); MONOCYTES % 5.4 % (2.0-8.0); NEUTROPHILS % 73.8 % (40.0-76.0); PLATELET 132 x1000/uL (130-400); RED BLOOD CELL COUNT 2.99 mill/uL (4.7-6.1); RED CELL DISTRIBUTION WIDTH 17.1 % (11.6-14.6); WHITE BLOOD COUNT 7.5 x1000/uL (4.5-11.0)
[2023-06-17 07:46] LABS: ALANINE AMINOTRANSFERASE 16 IU/L (10-49); ALBUMIN 3.3 g/dL (3.2-4.8); ASPARTATE AMINOTRANSFERASE 17 IU/L (<34); BILIRUBIN TOTAL < 0.2 mg/dL (0.1-1.0); CALCIUM 8.6 mg/dL (8.7-10.4); CARBON DIOXIDE 25 mEq/L (21-32); CHLORIDE 102 mEq/L (98-107); GLUCOSE 78 mg/dL (70-105); POTASSIUM 4.9 mEq/L (3.5-5.1); PREALBUMIN 30.6 mg/dl (10.0-40.0); SODIUM 138 mEq/L (136-145); UREA NITROGEN BLOOD 91 mg/dL (9-23)
[2023-06-17 07:54] LABS: CREATININE 13.1 mg/dL (0.6-1.3)
[2023-06-17] MEDS: PANTOPRAZOLE 40MG DR TABLET PO SCH (08:32)
[2023-06-17] MEDS: SEVELAMER CARBONATE 800 MG TABLET PO SCH (08:32)
[2023-06-17] MEDS: FOLIC ACID/VITAMIN B COMP W-C TABLET PO SCH (08:32)
[2023-06-17] MEDS: EPOETIN ALFA 4000UNITS/ML VIAL SUBCUT SCH (22:14)
[2023-06-18 06:06] LABS: AMMONIA < 17 uMol/L (<32)
[2023-06-18 07:59] LABS: BASOPHILS % 0.7 % (0.0-2.0); EOSINOPHILS % 5.7 % (0.0-5.0); HEMATOCRIT. 26.5 % (42.0-52.0); HEMOGLOBIN. 8.8 g/dL (14.0-18.0); MEAN CORPUSCULAR HEMOGLOBIN 28.8 pg (28.0-32.0); MEAN CORPUSCULAR HGB CONC 33.1 g/dL (31.0-37.0); MEAN CORPUSCULAR VOLUME 86.9 fL (80.0-94.0); MEAN PLATELET VOLUME 10.3 fl (7.4-10.4); MONOCYTES % 7.8 % (2.0-8.0); NEUTROPHILS % 69.8 % (40.0-76.0); PLATELET 140 x1000/uL (130-400); RED BLOOD CELL COUNT 3.05 mill/uL (4.7-6.1); RED CELL DISTRIBUTION WIDTH 17.2 % (11.6-14.6)
[2023-06-18 08:00] VITALS: BP 123/60; PULSE 90; RESP 17; TEMP 97.1
[2023-06-18 08:14] LABS: ALANINE AMINOTRANSFERASE 13 IU/L (10-49); ALBUMIN 3.3 g/dL (3.2-4.8); ASPARTATE AMINOTRANSFERASE 14 IU/L (<34); BILIRUBIN TOTAL < 0.2 mg/dL (0.1-1.0); CALCIUM 8.7 mg/dL (8.7-10.4); CARBON DIOXIDE 28 mEq/L (21-32); CHLORIDE 102 mEq/L (98-107); GLUCOSE 76 mg/dL (70-105); IRON 34 ug/dL (65-175); POTASSIUM 4.7 mEq/L (3.5-5.1); PROTEIN TOTAL 6.1 g/dL (6.0-8.3); SODIUM 139 mEq/L (136-145); THYROID STIMULATING HORMONE 2.02 uIU/mL (0.55-4.78); TOTAL IRON BINDING CAPACITY 226 ug/dl (250-425); UREA NITROGEN BLOOD 65 mg/dL (9-23)
[2023-06-18 08:15] LABS: CREATININE 10.6 mg/dL (0.6-1.3)
[2023-06-18 08:30] LABS: FERRITIN 932 ng/mL (22-322); FOLIC ACID (FOLATE) SERUM > 20.00 ng/mL (>5.38); VITAMIN B12 SERUM 978 pg/mL (211-911)
[2023-06-18 11:45] VITALS: BP 134/64; PULSE 62; RESP 18; TEMP 98.1
[2023-06-18 19:51] VITALS: BP 121/53; PULSE 67; RESP 17; TEMP 98.1
[2023-06-18] MEDS: LACTULOSE 20G/30ML UDC PO PRN (21:28)
[2023-06-19] MEDS: METHYL SALICYLATE/MENTHOL CREAM 85GM TOP PRN (06:25)
[2023-06-19 08:00] VITALS: BP 140/64; PULSE 64; RESP 18; TEMP 98.2
[2023-06-19] MEDS: ERGOCALCIFEROL 50000UNITS CAPSULE PO SCH (17:38)
[2023-06-19 20:00] VITALS: BP 152/51; PULSE 58; RESP 18; TEMP 97.7
[2023-06-20] VITALS (11 sets, daily range): BP systolic 123–154; BP diastolic 59–77; PULSE 59–68; RESP 16–18; TEMP 97–98.3
[2023-06-20 05:58] LABS: BASOPHILS % 0.6 % (0.0-2.0); EOSINOPHILS % 6.4 % (0.0-5.0); HEMATOCRIT. 25.3 % (42.0-52.0); HEMOGLOBIN. 8.6 g/dL (14.0-18.0); LYMPHOCYTES % 18.6 % (20.0-50.0); MEAN CORPUSCULAR HEMOGLOBIN 29.7 pg (28.0-32.0); MEAN CORPUSCULAR HGB CONC 33.8 g/dL (31.0-37.0); NEUTROPHILS % 67.4 % (40.0-76.0); PLATELET 158 x1000/uL (130-400); RED BLOOD CELL COUNT 2.88 mill/uL (4.7-6.1); RED CELL DISTRIBUTION WIDTH 17.1 % (11.6-14.6); WHITE BLOOD COUNT 5.9 x1000/uL (4.5-11.0)
[2023-06-20 06:05] LABS: CALCIUM 8.5 mg/dL (8.7-10.4); POTASSIUM 5.2 mEq/L (3.5-5.1)
[2023-06-21 08:00] VITALS: BP 123/69; PULSE 69; RESP 18; TEMP 97.6
[2023-06-21] MEDS ORDERED: IPRATROPIUM/ALBUTEROL 0.5-3(2.5)MG/3ML NEB HHN PRN (10:45)
[2023-06-21 20:00] VITALS: BP 127/61; PULSE 66; RESP 18; TEMP 97.2
[2023-06-22] VITALS (9 sets, daily range): BP systolic 127–155; BP diastolic 37–71; PULSE 58–68; RESP 17–19; TEMP 97.2–98.4
[2023-06-22 08:50] LABS: CALCIUM 8.7 mg/dL (8.7-10.4); POTASSIUM 4.9 mEq/L (3.5-5.1)
[2023-06-22 08:51] LABS: CREATININE 12.9 mg/dL (0.6-1.3)
[2023-06-22 08:52] LABS: BASOPHILS % 0.9 % (0.0-2.0); EOSINOPHILS % 7.9 % (0.0-5.0); HEMATOCRIT. 25.7 % (42.0-52.0); HEMOGLOBIN. 8.5 g/dL (14.0-18.0); LYMPHOCYTES % 17.8 % (20.0-50.0); MEAN CORPUSCULAR HEMOGLOBIN 29.6 pg (28.0-32.0); MEAN CORPUSCULAR HGB CONC 33.3 g/dL (31.0-37.0); MONOCYTES % 9.1 % (2.0-8.0); NEUTROPHILS % 64.3 % (40.0-76.0); RED BLOOD CELL COUNT 2.89 mill/uL (4.7-6.1); RED CELL DISTRIBUTION WIDTH 17.1 % (11.6-14.6)
[2023-06-22 09:06] LABS: DIFFERENTIAL COMMENT 1
[2023-06-22 13:23] LABS: PLATELET 171 x1000/uL (130-400)
[2023-06-23 00:10] VITALS: BP 131/49; PULSE 65; RESP 17
[2023-06-23 00:40] VITALS: BP 136/66; PULSE 68; RESP 17
[2023-06-23 00:45] VITALS: BP 135/63; PULSE 64; RESP 16; TEMP 98
[2023-06-23 08:00] VITALS: BP 123/50; PULSE 70; RESP 20; TEMP 98.2
[2023-06-24] VITALS: BP 140/59; PULSE 78; RESP 18; TEMP 97.7
[2023-06-24 08:00] VITALS: BP 126/58; PULSE 86; RESP 20; TEMP 97.9
[2023-06-24 16:01] LABS: BASOPHILS % 0.4 % (0.0-2.0); EOSINOPHILS % 9.1 % (0.0-5.0); HEMATOCRIT. 26.9 % (42.0-52.0); HEMOGLOBIN. 8.7 g/dL (14.0-18.0); LYMPHOCYTES % 13.4 % (20.0-50.0); MEAN CORPUSCULAR HEMOGLOBIN 28.3 pg (28.0-32.0); MEAN CORPUSCULAR HGB CONC 32.3 g/dL (31.0-37.0); MEAN CORPUSCULAR VOLUME 87.7 fL (80.0-94.0); MEAN PLATELET VOLUME 9.4 fl (7.4-10.4); MONOCYTES % 12.8 % (2.0-8.0); NEUTROPHILS % 64.3 % (40.0-76.0); PLATELET 159 x1000/uL (130-400); RED BLOOD CELL COUNT 3.07 mill/uL (4.7-6.1); RED CELL DISTRIBUTION WIDTH 17.3 % (11.6-14.6); WHITE BLOOD COUNT 4.7 x1000/uL (4.5-11.0)
[2023-06-24 16:20] LABS: CALCIUM 8.8 mg/dL (8.7-10.4); POTASSIUM 4.6 mEq/L (3.5-5.1)
[2023-06-24 16:36] LABS: CREATININE 11.6 mg/dL (0.6-1.3)
[2023-06-25 06:50] LABS: BASOPHILS % 0.6 % (0.0-2.0); EOSINOPHILS % 10.2 % (0.0-5.0); HEMATOCRIT. 26.7 % (42.0-52.0); HEMOGLOBIN. 8.8 g/dL (14.0-18.0); LYMPHOCYTES % 19.3 % (20.0-50.0); MEAN CORPUSCULAR HEMOGLOBIN 28.6 pg (28.0-32.0); MEAN CORPUSCULAR HGB CONC 32.9 g/dL (31.0-37.0); MEAN CORPUSCULAR VOLUME 86.8 fL (80.0-94.0); MEAN PLATELET VOLUME 9.3 fl (7.4-10.4); MONOCYTES % 11.4 % (2.0-8.0); NEUTROPHILS % 58.5 % (40.0-76.0); PLATELET 168 x1000/uL (130-400); RED BLOOD CELL COUNT 3.07 mill/uL (4.7-6.1); RED CELL DISTRIBUTION WIDTH 16.9 % (11.6-14.6); WHITE BLOOD COUNT 4.7 x1000/uL (4.5-11.0)
[2023-06-25 07:08] LABS: CALCIUM 9.1 mg/dL (8.7-10.4); POTASSIUM 4.7 mEq/L (3.5-5.1)
[2023-06-25 07:12] LABS: CREATININE 12.7 mg/dL (0.6-1.3)
[2023-06-25 08:00] VITALS: BP 144/59; PULSE 62; RESP 18; TEMP 98.2
[2023-06-26 07:51] LABS: BASOPHILS % 0.4 % (0.0-2.0); EOSINOPHILS % 10.4 % (0.0-5.0); HEMATOCRIT. 25.3 % (42.0-52.0); HEMOGLOBIN. 8.3 g/dL (14.0-18.0); LYMPHOCYTES % 19.7 % (20.0-50.0); MEAN CORPUSCULAR HEMOGLOBIN 28.4 pg (28.0-32.0); MEAN CORPUSCULAR HGB CONC 32.9 g/dL (31.0-37.0); MEAN CORPUSCULAR VOLUME 86.4 fL (80.0-94.0); MEAN PLATELET VOLUME 9.1 fl (7.4-10.4); MONOCYTES % 13.5 % (2.0-8.0); PLATELET 159 x1000/uL (130-400); RED BLOOD CELL COUNT 2.93 mill/uL (4.7-6.1); RED CELL DISTRIBUTION WIDTH 16.7 % (11.6-14.6); WHITE BLOOD COUNT 4.6 x1000/uL (4.5-11.0)
[2023-06-26 08:00] VITALS: BP 131/51; PULSE 60; RESP 16; TEMP 96.6
[2023-06-26 08:28] LABS: CALCIUM 8.7 mg/dL (8.7-10.4); POTASSIUM 5.4 mEq/L (3.5-5.1)
[2023-06-26 08:35] LABS: CREATININE 14.5 mg/dL (0.6-1.3)
[2023-06-26 20:00] VITALS: BP 134/57; PULSE 60; RESP 18; TEMP 98.6
[2023-06-27] VITALS (10 sets, daily range): BP systolic 113–166; BP diastolic 50–77; PULSE 58–69; RESP 17–20; TEMP 97–98.1
[2023-06-28 08:00] VITALS: BP 132/63; PULSE 73; RESP 18; TEMP 98.2
[2023-06-28 15:42] LABS: HEPATITIS A AB IGM NEGATIVE (Negative); HEPATITIS B CORE AB IGM NEGATIVE (Negative); HEPATITIS B SURFACE ANTIGEN NEGATIVE (Negative); HEPATITIS C AB NON REACTIVE (Neg) (Negative)
[2023-06-28 20:00] VITALS: BP 126/68; PULSE 57; RESP 19; TEMP 98.7
[2023-06-28 20:25] VITALS: BP 133/67; PULSE 66; RESP 16; TEMP 98.5
[2023-06-28 20:30] VITALS: BP 125/70; PULSE 59; RESP 16
[2023-06-28 21:00] VITALS: BP 144/71; PULSE 61; RESP 16
[2023-06-28 21:30] VITALS: BP 139/72; PULSE 64; RESP 16
[2023-06-29 08:00] VITALS: BP 149/50; PULSE 63; RESP 20; TEMP 97.2
[2023-06-29 20:00] VITALS: BP 112/53; PULSE 73; RESP 18; TEMP 98.2
[2023-06-30] VITALS (11 sets, daily range): BP systolic 120–159; BP diastolic 36–78; PULSE 60–74; RESP 16–20; TEMP 97.1–98.2
[2023-06-30 07:28] LABS: BASOPHILS % 0.8 % (0.0-2.0); EOSINOPHILS % 10.2 % (0.0-5.0); HEMOGLOBIN. 9.9 g/dL (14.0-18.0); LYMPHOCYTES % 21.1 % (20.0-50.0); MEAN CORPUSCULAR HEMOGLOBIN 28.2 pg (28.0-32.0); MEAN CORPUSCULAR HGB CONC 32.9 g/dL (31.0-37.0); MEAN CORPUSCULAR VOLUME 85.8 fL (80.0-94.0); MEAN PLATELET VOLUME 8.9 fl (7.4-10.4); MONOCYTES % 11.4 % (2.0-8.0); NEUTROPHILS % 56.5 % (40.0-76.0); PLATELET 170 x1000/uL (130-400); RED BLOOD CELL COUNT 3.49 mill/uL (4.7-6.1); RED CELL DISTRIBUTION WIDTH 16.5 % (11.6-14.6); WHITE BLOOD COUNT 4.5 x1000/uL (4.5-11.0)
[2023-06-30 07:50] LABS: CALCIUM 8.8 mg/dL (8.7-10.4); POTASSIUM 5.2 mEq/L (3.5-5.1)
[2023-06-30 08:02] LABS: CREATININE 13.8 mg/dL (0.6-1.3)
[2023-07-01 08:00] VITALS: BP 137/43; PULSE 72; RESP 20; TEMP 98.4
[2023-07-01 12:49] VITALS: BP 137/43; PULSE 72; TEMP 98.4; O2SAT 98
[2023-07-01 12:54] VITALS: BP 137/43; PULSE 72; TEMP 98.4; O2SAT 98
== END 2023-07-01 12:45 | DRG 70 ==
PROVIDERS: ADMIT Physical Medicine & Rehabilitation Spinal Cord Injury Medicine; ATTEND Internal Medicine
PROC: 5A1D70Z Performance of Urinary Filtration, Intermittent, Less than 6 Hours Per Day (ICD-10-PCS; principal; 2023-06-17)
PROC: 5A1D70Z Performance of Urinary Filtration, Intermittent, Less than 6 Hours Per Day (ICD-10-PCS; 2023-06-20)
PROC: 5A1D70Z Performance of Urinary Filtration, Intermittent, Less than 6 Hours Per Day (ICD-10-PCS; 2023-06-22)
PROC: 5A1D70Z Performance of Urinary Filtration, Intermittent, Less than 6 Hours Per Day (ICD-10-PCS; 2023-06-27)
PROC: 5A1D70Z Performance of Urinary Filtration, Intermittent, Less than 6 Hours Per Day (ICD-10-PCS; 2023-06-28)
PROC: 5A1D70Z Performance of Urinary Filtration, Intermittent, Less than 6 Hours Per Day (ICD-10-PCS; 2023-06-30)
DX: G93.41 Metabolic encephalopathy (principal); A41.9 Sepsis, unspecified organism; N18.6 End stage renal disease; I12.0 Hypertensive chronic kidney disease with stage 5 chronic kidney disease or end stage renal disease; M62.82 Rhabdomyolysis; D63.1 Anemia in chronic kidney disease; E11.22 Type 2 diabetes mellitus with diabetic chronic kidney disease; E87.5 Hyperkalemia; E11.51 Type 2 diabetes mellitus with diabetic peripheral angiopathy without gangrene; E55.9 Vitamin D deficiency, unspecified; L97.519 Non-pressure chronic ulcer of other part of right foot with unspecified severity; E11.42 Type 2 diabetes mellitus with diabetic polyneuropathy; E78.00 Pure hypercholesterolemia, unspecified; F32.A Depression, unspecified; R53.81 Other malaise; R19.5 Other fecal abnormalities; R26.9 Unspecified abnormalities of gait and mobility; R41.89 Other symptoms and signs involving cognitive functions and awareness; R74.8 Abnormal levels of other serum enzymes; F41.9 Anxiety disorder, unspecified; J45.909 Unspecified asthma, uncomplicated; Z86.73 Personal history of transient ischemic attack (TIA), and cerebral infarction without residual deficits; Z99.2 Dependence on renal dialysis; Z98.62 Peripheral vascular angioplasty status; Z87.891 Personal history of nicotine dependence; Z91.81 History of falling
CPT/HCPCS: 36415; 71045; 80048; 80053; 82140; 82306; 82607; 82728; 82746; 82962; 83036; 83540; 83550; 84134; 84443; 85025; 86705; 86706; 86709; 87340; 90935; 92523; 92610; 97110; 97112; 97116; 97162; 97166; 97530; 97535; 97542; J0885

== ENCOUNTER 2024-06-11 13:28 | Emergency (ER) | payer MEDICARE, MEDICAID ==
[~2024-06-11] VITALS: Ht 167.6 cm; Wt 54.0 kg
[~2024-06-11 13:28] MED LIST changes: +ATOR-388 MT; -ATOR80TA MT; +FOLI0.8T53 MT; +GABA-1180 PO; -GABA-532 PO; -NEPVIT MT
[2024-06-11 13:46] VITALS: BP 96/49; TEMP 36.7; O2SAT 100
[2024-06-11 13:49] VITALS: PULSE 73; RESP 17; O2SAT 99
[2024-06-11 14:34] LABS: CARBON DIOXIDE 31 mEq/L (21-32); CHLORIDE 97 mEq/L (98-107); POTASSIUM 4.7 mEq/L (3.5-5.1); SODIUM 138 mEq/L (136-145)
[2024-06-11 14:35] LABS: CALCIUM 8.3 mg/dL (8.7-10.4)
[2024-06-11 14:40] LABS: BASOPHILS % 0.7 % (0.0-2.0); EOSINOPHILS % 3.6 % (0.0-5.0); GLUCOSE 134 mg/dL (70-105); HEMATOCRIT. 38.4 % (42.0-52.0); HEMOGLOBIN. 11.9 g/dL (14.0-18.0); LYMPHOCYTES % 19.1 % (20.0-50.0); MEAN CORPUSCULAR HEMOGLOBIN 27.4 pg (28.0-32.0); MEAN CORPUSCULAR HGB CONC 31.1 g/dL (31.0-37.0); MEAN CORPUSCULAR VOLUME 88.2 fL (80.0-94.0); MEAN PLATELET VOLUME 9.2 fl (7.4-10.4); MONOCYTES % 7.5 % (2.0-8.0); NEUTROPHILS % 69.1 % (40.0-76.0); PLATELET 204 x1000/uL (130-400); RED BLOOD CELL COUNT 4.36 mill/uL (4.7-6.1); RED CELL DISTRIBUTION WIDTH 18.1 % (11.6-14.6); UREA NITROGEN BLOOD 20 mg/dL (9-23); WHITE BLOOD COUNT 5.1 x1000/uL (4.5-11.0)
[2024-06-11 14:41] LABS: ALANINE AMINOTRANSFERASE 10 IU/L (10-49)
[2024-06-11 14:42] LABS: ALBUMIN 4.2 g/dL (3.2-4.8); ASPARTATE AMINOTRANSFERASE 18 IU/L (<34); BILIRUBIN TOTAL 0.2 mg/dL (0.1-1.0); PROTEIN TOTAL 7.8 g/dL (6.0-8.3)
[2024-06-11 15:27] LABS: BILIRUBIN DIRECT < 0.1 mg/dL (<=3.0); CREATININE 6.9 mg/dL (0.6-1.3)
== END 2024-06-11 19:08 | disposition home or self-care (01) ==
LOC: ER 13:28 → CANBEDREQ 17:27 → ER 19:08
DX: R10.32 Left lower quadrant pain (principal); E11.22 Type 2 diabetes mellitus with diabetic chronic kidney disease; I13.2 Hypertensive heart and chronic kidney disease with heart failure and with stage 5 chronic kidney disease, or end stage renal disease; I50.9 Heart failure, unspecified; N18.6 End stage renal disease; E78.00 Pure hypercholesterolemia, unspecified; Z79.02 Long term (current) use of antithrombotics/antiplatelets; Z79.82 Long term (current) use of aspirin; Z79.899 Other long term (current) drug therapy; Z99.2 Dependence on renal dialysis; Z98.890 Other specified postprocedural states
CPT/HCPCS: 36415; 74176; 80048; 80076; 85025; 99284

== ENCOUNTER 2024-10-09 12:52 | Emergency (ER) | payer MEDICARE, MEDICAID ==
[~2024-10-09] VITALS: Ht 160 cm; Wt 64.0 kg
[2024-10-09 13:04] VITALS: TEMP 36.7; O2SAT 98
[2024-10-09] MEDS ORDERED: FAMOTIDINE 20MG/2ML VIAL IV STA (13:20)
[2024-10-09] MEDS ORDERED: METOCLOPRAMIDE HCL 10MG/2ML VIAL IV STA (13:20)
[2024-10-09 14:04] LABS: BASOPHILS % 0.9 % (0.0-2.0); EOSINOPHILS % 5.2 % (0.0-5.0); HEMATOCRIT. 36.2 % (42.0-52.0); HEMOGLOBIN. 11.7 g/dL (14.0-18.0); LYMPHOCYTES % 23.5 % (20.0-50.0); MEAN PLATELET VOLUME 8.8 fl (7.4-10.4); MONOCYTES % 9.4 % (2.0-8.0); NEUTROPHILS % 61.0 % (40.0-76.0); PLATELET 200 x1000/uL (130-400); RED BLOOD CELL COUNT 3.98 mill/uL (4.7-6.1); RED CELL DISTRIBUTION WIDTH 17.6 % (11.6-14.6)
[2024-10-09 14:14] LABS: INR 1.0
[2024-10-09 14:16] LABS: TROPONIN I HIGH SENSITIVITY 17 ng/L (3.0-53); UREA NITROGEN BLOOD 29 mg/dL (9-23)
[2024-10-09 14:17] LABS: ASPARTATE AMINOTRANSFERASE 15 IU/L (<34)
[2024-10-09 14:18] LABS: BILIRUBIN DIRECT < 0.1 mg/dL (<=3.0); BILIRUBIN TOTAL 0.2 mg/dL (0.1-1.0); PROTEIN TOTAL 7.5 g/dL (6.0-8.3)
[2024-10-09 14:21] LABS: CREATININE 8.2 mg/dL (0.6-1.3)
[2024-10-09] MEDS: METOCLOPRAMIDE HCL 10MG/2ML VIAL IV SCH (15:20)
[2024-10-09] MEDS: FAMOTIDINE 20MG/2ML VIAL IV SCH (15:20)
[2024-10-09 16:52] LABS: TROPONIN I HIGH SENSITIVITY 13 ng/L (3.0-53)
[2024-10-09] MEDS ORDERED: CEFP100T8 MT (19:33)
[2024-10-09 20:35] VITALS: BP 118/62; PULSE 66; RESP 12; O2SAT 100
== END 2024-10-09 20:46 | disposition home or self-care (01) ==
LOC: ER 12:52
DX: R10.9 Unspecified abdominal pain (principal); E11.22 Type 2 diabetes mellitus with diabetic chronic kidney disease; E78.00 Pure hypercholesterolemia, unspecified; I13.2 Hypertensive heart and chronic kidney disease with heart failure and with stage 5 chronic kidney disease, or end stage renal disease; I50.9 Heart failure, unspecified; I44.7 Left bundle-branch block, unspecified; I49.1 Atrial premature depolarization; N18.6 End stage renal disease; Z79.82 Long term (current) use of aspirin; Z79.899 Other long term (current) drug therapy; Z99.2 Dependence on renal dialysis
CPT/HCPCS: 99285; 74176; 96374; 71045; 96375; 80076; 80048; 83690; 85025; 85610; 84484; 36415; 93005; J1308; J2765